=== PATIENT | male | born 1960 | race Caucasian/White ===

== ENCOUNTER 2018-04-24 13:31 | Emergency (ER) | payer MEDICARE, MEDICAID, SELFPAY ==
[2018-04-24 13:41] VITALS: BP 122/85; PULSE 81; RESP 16; TEMP 36.3; O2SAT 98
--- NOTE | 2018-04-24 13:47 | ED.GENADUL_ITS ---
Discharge Plan Disposition Patient Disposition: HOME Condition: Stable Discharge Details Chief Complaint: Abd Prob Clinical Impression: Dysuria Primary Care Provider: True Tinoco ED Provider: Romario Taylor Home Meds and New Rx's Prescriptions: New doxycycline hyclate 100 mg capsule 100 mg PO BID 10 Days Qty: 20 RF: 0 Continue ibuprofen 600 MG tablet 600 mg PO Q6H PRN (Reason: Pain) Qty: 20 RF: 0 acetaminophen [Tylenol] 325 MG tablet 325 mg PO Q6H PRN (Reason: Pain) Qty: 20 RF: 0 Discharge Instructions Instructions: Dysuria (ED) Additional Instructions: Please make an appointment to follow-up with Dr. Tinoco in clinic to review your final culture results. Please take the doxycycline as prescribed. Home to rest today. Small, frequent sips of fluids Medical Decision Making 57-year-old male presents from home complaining of weeks of episodes of burning with both urination and ejaculation. He states it began following unprotected sex some months ago. Denies any penile lesions, no fever, no vomiting and he otherwise has been well. He arrives with unremarkable vital signs and a reassuring exam. GC and Chlamydia obtained with screening macro urinalysis. UA is unremarkable for evidence of infection, GC and Chlamydia pending. Given his complaints and sexual contact I will elect to treat with ceftriaxone and doxycycline. He is stable for discharge. He may follow-up with Dr. Tinoco for final culture results HPI General Mode of arrival: ambulatory . Date/Time Provider Initiated Documentation: 04/24/18 13:32 . Limitations to Documentation: no limitations . Information obtained by: patient . History of Present Illness 57 year old M presents to the emergency department with the chief complaint of Burning with ejaculation and urine over weeks time, Quality is described as burning, and is localized to the pelvis and genitals. Patient reports no radiation. Patient started experiencing this week(s) No relieving factors improve symptom(s), No exacerbating factors reported . Patient notes no other symptoms.. Patient did receive the following treatments prior to arrival, none Related Data Home Medications Medication Instructions Recorded Confirmed acetaminophen [Tylenol] 325 mg PO Q6H PRN #20 tab 03/07/17 03/15/17 ibuprofen 600 mg PO Q6H PRN #20 tablet 03/07/17 03/15/17 doxycycline hyclate 100 mg PO BID 10 Days #20 cap 04/24/18 Previous Rx's Medication Instructions Recorded acetaminophen [Tylenol] 325 mg PO Q6H PRN #20 tab 03/07/17 ibuprofen 600 mg PO Q6H PRN #20 tablet 03/07/17 doxycycline hyclate 100 mg PO BID 10 Days #20 cap 04/24/18 Allergies Allergy/AdvReac Type Severity Reaction Status Date / Time Penicillins Allergy Intermediate Skin Rash Unverified 04/24/18 13:44 citric acids Allergy Intermediate Hives Uncoded 04/24/18 13:44 mayonaise Allergy Intermediate Hives Uncoded 04/24/18 13:44 General Stated Complaint: Abd Prob CLIFFORD: 4 Review of Systems Review of Systems GEN: awake, alert, oriented 3. Pleasant, well groomed, interactive. HEAD: Normocephalic, atraumatic ENT: Mucous membranes moist, oropharynx unremarkable, External ear exam unremarkable EYES: PERRL, EOMI NECK: Full ROM, no REDDY, no menigismus CHEST/RESP: Nontender, clear to auscultation bilateral, no wheeze/rhonchi/rales CARDIOVASCULAR: RRR, no murmur, rub kennedy. 2+ Rad pulse bilateral ABDOMEN: Soft, nontender, no mass. +Bowel sounds. Patient is circumcised and the remainder of the exam is unremarkable with testes descended bilat EXT: Full ROM, no edema, no rash Neuro: Grossly normal neurologic exam, conversant, interactive. Psych: Speech fluent, thoughts congruent, affect normal PFSH Ankle fracture, right Arm fracture, right Bipolar 1 disorder Leg fracture, right ORIF right ankle ORIF right arm ORIF right femur Medical History Ankle fracture, right Arm fracture, right Bipolar 1 disorder Leg fracture, right Social History Smoking/Tobacco Use Status: Current every day Surgical History ORIF right ankle ORIF right arm ORIF right femur Social History Smoking/Tobacco Use Status: Current every day Exam Narrative Exam Narrative: GEN: awake, alert, oriented 3. Pleasant, well groomed, interactive. HEAD: Normocephalic, atraumatic ENT: Mucous membranes moist, oropharynx unremarkable, External ear exam unremarkable EYES: PERRL, EOMI NECK: Full ROM, no REDDY, no menigismus CHEST/RESP: Nontender, clear to auscultation bilateral, no wheeze/rhonchi/rales CARDIOVASCULAR: RRR, no murmur, rub kennedy. 2+ Rad pulse bilateral ABDOMEN: Soft, nontender, no mass. +Bowel sounds EXT: Full ROM, no edema, no rash Neuro: Grossly normal neurologic exam, conversant, interactive. Psych: Speech fluent, thoughts congruent, affect normal Course Vital Signs Temperature 36.3 C L 04/24/18 13:41 Pulse 81 04/24/18 13:41 Respiratory Rate 16 04/24/18 13:41 Blood Pressure 122/85 04/24/18 13:41 Pulse Oximetry 98 04/24/18 13:41 Temperature 36.3 C L 04/24/18 13:41 Temperature Source Temporal Artery Scan 04/24/18 13:41 Pulse 81 04/24/18 13:41 Respiratory Rate 16 04/24/18 13:41 Blood Pressure 122/85 04/24/18 13:41 Pulse Oximetry 98 04/24/18 13:41 Oxygen Delivery Method Room Air 04/24/18 13:41 Oxygen Flow Rate 0 04/24/18 13:41 Pain Level 7 04/24/18 13:41
[2018-04-24 14:08] LABS: Bilirubin Negative (Negative); Blood Negative (Negative); Clarity Clear; Glucose Negative (Negative); Ketones Negative (Negative); Leukocyte Esterase Negative (Negative); Nitrite Negative (Negative); Urobilinogen 0.2 EU/dL (Up TO 0.2); pH 5.5 (5-8)
[2018-04-24] MEDS: cefTRIAXone 250 MG VIAL IM (14:27)
[2018-04-24 14:40] VITALS: BP 113/80; PULSE 89; RESP 16; O2SAT 100
[2018-04-25 14:18] LABS: Chlamydia Result Negative; GC Result Negative
== END 2018-04-24 14:40 | disposition home or self-care (01) ==
PROVIDERS: Emergency Provider Emergency Medicine; PCP General Practice
DX: R30.0 Dysuria (principal); Z77.21 Contact with and (suspected) exposure to potentially hazardous body fluids
CPT/HCPCS: 87491; 87591; 96372; 99284; 81003; J0696

== ENCOUNTER 2018-05-07 13:17 | Emergency (ER) | payer MEDICARE, MEDICAID, SELFPAY ==
[2018-05-07 13:42] VITALS: BP 130/80; PULSE 90; RESP 16; TEMP 36.2; O2SAT 96
[2018-05-07 16:13] LABS: Bilirubin Negative (Negative); Blood Negative (Negative); Clarity Clear; Glucose Negative (Negative); Ketones Negative (Negative); Leukocyte Esterase Negative (Negative); Nitrite Negative (Negative); Specific Gravity 1.015 (1.005-1.025); Urobilinogen 0.2 EU/dL (Up TO 0.2)
--- NOTE | 2018-05-07 16:41 | ED.GENADUL_ITS ---
Discharge Plan Disposition Patient Disposition: HOME Discharge Details Chief Complaint: RashLesion Clinical Impression: Lesion of penis Reason For Visit: STD Primary Care Provider: True Tinoco ED Provider: Endy Oliva Home Meds and New Rx's Prescriptions: Continued ibuprofen 600 MG tablet 600 mg PO Q6H PRN (Reason: Pain) Qty: 20 RF: 0 acetaminophen [Tylenol] 325 MG tablet 325 mg PO Q6H PRN (Reason: Pain) Qty: 20 RF: 0 Discharge Instructions Instructions: Genital Warts (ED) Additional Instructions: Be sure to use barrier protection including a condom anytime you have sexual activity. Please follow-up with a primary care physician. Return to the ER for any worsening or new concerning symptoms Medical Decision Making 58-year-old male here with few tiny skin colored papules on his glans penis, also with some dysuria and painful ejaculation. Recent gonorrhea and Chlamydia testing was neg on 04/24/18. He was treated empirically with ceftriaxone and doxycycline and completed full course of doxycycline. Repeat UA today neg. And irritation versus genital warts. Plan for outpatient follow-up with a primary care physician. He is attempting to schedule pcp follow-up and currently completing [facility]ork. HPI General Mode of arrival: ambulatory . Date/Time Provider Initiated Documentation: 05/07/18 15:34 . Limitations to Documentation: no limitations . Information obtained by: patient . HPI Narrative: 58-year-old male with history of bipolar disorder presents with chief complaint of penile lesion. Patient notes that over the past few months he has noticed small lumps on the glans of his penis. He also notes some associated intermittent dysuria and discomfort with ejaculation. Patient was seen here on 04/24/2018 and inferior treated with ceftriaxone and doxycycline. Subsequent GC and chlamydia results have been negative. No associated fever. No penile discharge. No ulcers. Patient does note that he has had unprotected anal sex about 1 year ago. Related Data Home Medications Medication Instructions Recorded Confirmed acetaminophen [Tylenol] 325 mg PO Q6H PRN #20 tab 03/07/17 03/15/17 ibuprofen 600 mg PO Q6H PRN #20 tablet 03/07/17 03/15/17 Previous Rx's Medication Instructions Recorded acetaminophen [Tylenol] 325 mg PO Q6H PRN #20 tab 03/07/17 ibuprofen 600 mg PO Q6H PRN #20 tablet 03/07/17 Allergies Allergy/AdvReac Type Severity Reaction Status Date / Time Penicillins Allergy Intermediate Skin Rash Unverified 05/07/18 13:48 citric acids Allergy Intermediate Hives Uncoded 05/07/18 13:48 mayonaise Allergy Intermediate Hives Uncoded 05/07/18 13:48 General Stated Complaint: RashLesion CLIFFORD: 4 Review of Systems Constitutional Denies fever(s) Genitourinary Reports as per HPI Integumentary/Breasts Reports as per HPI Hematologic/Lymphatic Denies lymphadenopathy PFSH Medical History Ankle fracture, right Arm fracture, right Bipolar 1 disorder Leg fracture, right Surgical History ORIF right ankle ORIF right arm ORIF right femur Social History Smoking/Tobacco Use Status: Current every day Exam Const General: cooperative, healthy appearing and no acute distress Orientation: alert Penis: no ulcerations, no vesicles and other (tiny skin colored papules on dorsal glans penis) Meatus: meatus normal Scrotum: scrotum normal Testes: normal and epididymides normal Skin Other: penile lesions as noted Course Vital Signs Temperature 36.2 C L 05/07/18 13:42 Pulse 90 05/07/18 13:42 Respiratory Rate 16 05/07/18 13:42 Blood Pressure 130/80 05/07/18 13:42 Pulse Oximetry 96 05/07/18 13:42 Temperature 36.2 C L 05/07/18 13:42 Temperature Source Temporal Artery Scan 05/07/18 13:42 Pulse 90 05/07/18 13:42 Respiratory Rate 16 05/07/18 13:42 Respiratory Effort 05/07/18 13:47 Blood Pressure 130/80 05/07/18 13:42 Pulse Oximetry 96 05/07/18 13:42 Oxygen Delivery Method Room Air 05/07/18 13:42 Oxygen Flow Rate 0 05/07/18 13:42 Lab/Test Results Lab/Test Results: Laboratory Tests Range/Units 05/07/18 15:55 Urine Color (Yellow) Yellow Urine Clarity Clear Urine pH (5-8) 6.0 Ur Specific [place] (1.005-1.025) 1.015 Urine Protein (Negative) mg/dL Negative Urine Ketones (Negative) mg/dL Negative Urine Blood (Negative) Negative Urine Nitrite (Negative) Negative Urine Bilirubin (Negative) Negative Urine Urobilinogen (Up TO 0.2) EU/dL 0.2 Ur Leukocyte Esterase (Negative) Negative Urine Glucose (Negative) mg/dL Negative
[2018-05-09 15:29] LABS: Chlamydia Result Negative; GC Result Negative; Specimen Description URINE
== END 2018-05-07 16:45 | disposition home or self-care (01) ==
PROVIDERS: Emergency Provider Student in an Organized Health Care Education/Training Program; PCP General Practice
DX: N50.9 Disorder of male genital organs, unspecified (principal); N53.12 Painful ejaculation; R30.0 Dysuria
CPT/HCPCS: 87491; 87591; 99282; 81003

== ENCOUNTER 2018-05-12 11:36 | Emergency (ER) | payer MEDICARE, MEDICAID, SELFPAY ==
[2018-05-12 11:45] VITALS: BP 102/79; PULSE 69; RESP 15; TEMP 36.4; O2SAT 97
--- NOTE | 2018-05-12 13:35 | ED.GENADUL_ITS ---
Discharge Plan Disposition Patient Disposition: HOME Condition: Stable Discharge Details Chief Complaint: RashLesion Clinical Impression: Genital warts Primary Care Provider: True Tinoco ED Provider: Efraín Matos Home Meds and New Rx's Prescriptions: Continued ibuprofen 600 MG tablet 600 mg PO Q6H PRN (Reason: Pain) Qty: 20 RF: 0 acetaminophen [Tylenol] 325 MG tablet 325 mg PO Q6H PRN (Reason: Pain) Qty: 20 RF: 0 Discharge Instructions Instructions: Genital Warts (ED) Additional Instructions: Follow-up with your primary care provider for reassessment and potential treatment options if your symptoms continue. Please practice safe sex practices for any sexual encounters you may have to prevent spread of your symptoms. Referrals: True Tinoco MD [Primary Care Provider] - Discharge Data Discharge Date/Time-TO BE ENTERED AT DEPARTURE: 05/12/18 13:54 Medical Decision Making Patient presenting the emergency department for chief complaint of genital warts. Patient states he was seen previously in the emergency department but was not prescribed any medication. Patient states he is very anxious about this condition and is not followed up with a primary care provider about it. Physical exam shows 1 possible area of redness and irritation to the glans of the penis on the right side otherwise I do not see any other diffuse signs of genital warts at this time. Patient has no other symptoms. Patient recently had negative gonorrhea chlamydia testing but did receive prophylactic treatment along with doxycycline at that time. Patient states no worsening symptoms and actually states that he feels that some of the warts may have gone away or gotten better. Given some report of self resolution and non-worrisome physical exam I do feel the patient is able to safely follow up with primary care provider and I do not feel that patient requires any treatment at this time as patient's area of discomfort is not clear with obvious diagnosis. Patient is highly anxious and had thorough discussion with patient in regards to diagnosis and need to follow-up with primary care for repeat reassessments and possible other therapies that are typically not performed in the emergency department. HPI General Mode of arrival: ambulatory . Date/Time Provider Initiated Documentation: 05/12/18 11:46 . Limitations to Documentation: no limitations . Information obtained by: patient, RN notes reviewed and old records reviewed . History of Present Illness 58 year old M presents to the emergency department with the chief complaint of Genital warts, described as similar to prior episodes, Quality is described as other (Denies pain), Patient started experiencing this week(s) (1) and it has been other (Improving). No relieving factors improve symptom(s), No exacerbating factors reported . Patient notes no other symptoms.. Patient did receive the following treatments prior to arrival, none Related Data Home Medications Medication Instructions Recorded Confirmed acetaminophen [Tylenol] 325 mg PO Q6H PRN #20 tab 03/07/17 05/12/18 ibuprofen 600 mg PO Q6H PRN #20 tablet 03/07/17 05/12/18 Previous Rx's Medication Instructions Recorded acetaminophen [Tylenol] 325 mg PO Q6H PRN #20 tab 03/07/17 ibuprofen 600 mg PO Q6H PRN #20 tablet 03/07/17 Allergies Allergy/AdvReac Type Severity Reaction Status Date / Time Penicillins Allergy Intermediate Skin Rash Unverified 05/12/18 11:50 citric acids Allergy Intermediate Hives Uncoded 05/12/18 11:50 mayonaise Allergy Intermediate Hives Uncoded 05/12/18 11:50 General Stated Complaint: RashLesion CLIFFORD: 4 Review of Systems Constitutional Denies body ache(s), Denies chills and Denies fever(s) Cardiovascular Denies chest pain and Denies dyspnea Respiratory Denies dyspnea Gastrointestinal Denies abdominal pain, Denies nausea and Denies vomiting Genitourinary Reports as per HPI, Reports genital lesions, Denies painful ejaculations, Denies penile discharge, Denies scrotal swelling, Denies testicular mass, Denies testicular pain, Denies urinary frequency and Denies urinary hesitancy Neurologic Denies confusion and Denies sensory deficit Psychiatric Denies confusion [facility] Medical History Ankle fracture, right Arm fracture, right Bipolar 1 disorder Leg fracture, right Surgical History ORIF right ankle ORIF right arm ORIF right femur Social History Smoking/Tobacco Use Status: Current every day Exam Const General: cooperative, no acute distress and not ill appearing Orientation: alert, awake and oriented x3 HENMT Mouth: moist mucous membranes Resp Effort & Inspection: normal respiratory effort, able to speak in complete sentences and no respiratory distress Cardio Rate: regular rate Rhythm: regular rhythm Penis: no condylomata, no ecchymosis, not edematous, no nodules, no papules, no swelling, no ulcerations, no vesicles and other (Single small area of erythema noted to the right superior aspect ) Meatus: meatus normal and no meatla discharge Scrotum: scrotum normal, no hydroceles, no masses, no spermatoceles, no ulcerations and no varicoceles Testes: normal, testicular lie normal and epididymides normal Skin General skin exam: no rashes or lesions noted Neuro General: alert, awake, oriented x3, moves all extremities and no focal motor deficits Sensory Exam: no sensory deficits noted Course Vital Signs Temperature 36.4 C L 05/12/18 11:45 Pulse 69 05/12/18 11:45 Respiratory Rate 15 05/12/18 11:45 Blood Pressure 102/79 05/12/18 11:45 Pulse Oximetry 97 05/12/18 11:45 Temperature 36.4 C L 05/12/18 11:45 Temperature Source Temporal Artery Scan 05/12/18 11:45 Pulse 69 05/12/18 11:45 Respiratory Rate 15 05/12/18 11:45 Respiratory Effort Non-Labored 05/12/18 11:49 Blood Pressure 102/79 05/12/18 11:45 Blood Pressure Position Sitting 05/12/18 11:45 Pulse Oximetry 97 05/12/18 11:45 Oxygen Delivery Method Room Air 05/12/18 11:45 Oxygen Flow Rate 0 05/12/18 11:45 Pain Level 0 05/12/18 11:45
[2018-05-12 13:48] VITALS: BP 102/79; PULSE 69; RESP 15; TEMP 36.5; O2SAT 97
== END 2018-05-12 13:54 | disposition home or self-care (01) ==
PROVIDERS: Emergency Provider Nurse Practitioner Family; PCP General Practice
DX: A63.0 Anogenital (venereal) warts (principal)
CPT/HCPCS: 99283; 99281; 99282

== ENCOUNTER 2018-07-06 12:50 | Outpatient (CLI) | payer MEDICARE, MEDICAID, SELFPAY ==
[2018-07-09 12:21] LABS: HSV Type 1 Ab, IgG Negative; HSV Type 2 Ab, IgG Negative; Syphilis Serology (RPR) Negative (Negative)
[2018-07-09 13:41] LABS: Chlamydia Result Negative; GC Result Negative; Specimen Description URINE
[2018-07-09 13:50] LABS: HIV-1/2 Ag & Ab Screen Negative (NEGAT)
[2018-07-09 13:51] LABS: HBs Antibody, Qual Negative; HBs Antibody, Quant <3.1 mIU/mL; Hepatitis B Core Antibody Negative (NEGAT); Hepatitis B surface Ag Negative (NEGAT); Hepatitis C Ab w Rflx HCV PCR Negative (NEGAT)
== END 2018-07-06 13:10 ==
PROVIDERS: PCP Family Medicine; Visit Provider Family Medicine
DX: Z11.3 Encounter for screening for infections with a predominantly sexual mode of transmission (principal); Z11.4 Encounter for screening for human immunodeficiency virus [HIV]; Z11.59 Encounter for screening for other viral diseases
CPT/HCPCS: 36415; 86704; 86706; 86803; 87340; 87389; 87491; 87591; 86592; 86695; 86696

== ENCOUNTER 2018-07-06 13:16 | Emergency (ER) | payer MEDICARE, MEDICAID, SELFPAY ==
[2018-07-06 13:18] VITALS: BP 115/87; PULSE 99; RESP 16; TEMP 36.7; O2SAT 97
--- NOTE | 2018-07-06 13:54 | NUR.NOTE ---
patient reported to JOY Cardona about hanging himself and if I had access to a gun I would shoot the people in my apartment that are making crack Nursing Note:
--- NOTE | 2018-07-06 14:06 | NUR.NOTE ---
JOY Cardona is operating as an costant patient observer Nursing Note:
--- NOTE | 2018-07-06 14:19 | DI.RAD_ITS ---
SYMPTOMS/DIAGNOSIS: COUGH FOR WEEKS PORTABLE AP CHEST: The heart is not enlarged. The lungs appear grossly clear. No pleural effusions seen. CONCLUSION: No evidence of acute disease.
[2018-07-06 14:34] LABS: Abs Immature Grans 0.01 k/cumm (0.0-0.09); Absolute Basophil Count 0.03 k/cumm (0.0-0.2); Absolute Eosinophil Count 0.05 k/cumm (0.0-0.7); Absolute Lymphocyte Count 1.54 k/cumm (1.2-3.4); Absolute Monocyte Count 0.56 k/cumm (0.11-0.7); Absolute Neutrophil Count 5.31 k/cumm (1.2-6.7); Basophils % 0.4; Eosinophils % 0.7; HCT 45.7 % (40.0-50.0); HGB 15.7 g/dL (13.5-17.5); Immature Grans % 0.1; Lymphocytes % 20.5; Mean Corp. HGB Concentration 34.4 g/dL (32.0-36.0); Mean Corpuscular Hemoglobin 29.6 pg (27.0-33.0); Mean Corpuscular Volume 86.2 fL (80-95); Mean Platelet Volume 10.2 fL (8.0-11.0); Monocytes % 7.5; Neutrophils % 70.8; Platelet Count 220 x1000/uL (130-400); RBC Distribution Width 12.5 % (11.8-14.1)
--- NOTE | 2018-07-06 14:34 | W.ED.GENAD ---
Discharge Plan Disposition Patient Disposition: [facility] Condition: Stable Discharge Details Chief Complaint: RespSymp Clinical Impression: Suicidal ideation, Depression Primary Care Provider: Roman Bryan ED Provider: Romario Taylor Home Meds and New Rx's Prescriptions: No Action No Known Home Meds RF: 0 Discharge Data Discharge Date/Time-TO BE ENTERED AT DEPARTURE: 07/07/18 09:39 Medical Decision Making <Bharathi Hernandez DO - Last Filed: 07/06/18 18:59> This is a pleasant 58-year-old male with a past medical history of bipolar disorder, anxiety, who presents today for evaluation of mild chest pain that occurred 3-4 days ago, however this is completely resolved. He has no history of cardiac disease. However the patient does demonstrate notable anxiety, mostly all stemming from where he currently lives. He admits to having had thoughts of ending his life, however this seems to be more closely related to him if he continues to live where he is currently at. We will perform a cardiac workup, as well as evaluate for any acute lung pathology and have mental health come and assessed the patient. 6:57 PM Patient's laboratory workup is benign, no significant abnormalities. EKG is benign. Patient did have a mild complaint of chest pain which I think is notably atypical for ACS especially in light of her normal EKG and normal troponin, his pain does get better when he sits up, and worse when he lays down, I feel the signs and symptoms most likely consistent with mild pericarditis or musculoskeletal strain and not cardiac. He is medically cleared at this time. Unfortunately the patient is now stating that if he goes home he will slit my wrists with scissors because I cannot live like this anymore. Additionally the patient also states that if he goes home he will stabbed the people at his apartment with scissors since I cant get a gun. As it is I do feel that the patient would notably benefit from inpatient psychiatric admission. Mental health is currently assessing for potential placement. The case will be signed out to my colleague Dr. De Leon for eventual disposition if a bed does become available. EKG 14: 24 Rate 65, intervals normal, sinus rhythm, no ST elevations or depressions, no significant T wave inversions or Q waves. PORTABLE AP CHEST: The heart is not enlarged. The lungs appear grossly clear. No pleural effusions seen. CONCLUSION: No evidence of acute disease. Ordered By: Bharathi Hernandez DO <Endy Oliva MD - Last Filed: 07/19/18 16:27> Patient was signed out to me last night. He did complain of a rash on his right forearm which I evaluated. Three tiny papules noted with no erythema. Unclear etiology. Patient believes may be related to stress. No intervention indicated at this time. Patient remains medically stable to transfer to psychiatric treatment facility. [facility] called earlier noting that they may be able to accept later today. Care signed out to , plan to await placement in psych treatment facility. <Romario Taylor MD - Last Filed: 07/07/18 08:45> Patient accepted in transfer to the [facility] to the service of Dr. Sahu HPI <Bharathi Hernandez DO - Last Filed: 07/06/18 18:59> General Date/Time Provider Initiated Documentation: 07/06/18 13:16. HPI Narrative: This is a 58-year-old male with no significant past medical history except for bipolar disorder, depression, and anxiety, who presents today for symptoms of anxiety and depression. Patient states that his neighbors smoke crack and utilize drugs, and these chemicals have been seeping through the wall and the floor, he feels that they may be affecting him. He does admit to a mild cough, with occasional productive yellow sputum. He did admit to chest pain that occurred 3-4 days ago, and it was present when he lie down flat but improved when he sat upwards. He denies any significant chest pain or pleuritic chest pain now. He denies any history of cardiac disease. He denies any drug use, or cocaine use. Denies PE risk factors such as recent long car rides, immobilization, recent surgery, prior history of DVT or PE, family history of PE or DVT, morbid obesity, exogenous estrogen and smoking, hemoptysis, history of cancer. Additionally the patient states that I have to get out of this house, cannot live here anymore.He also states that I thought about harming myself in the past, but I do not want to kill myself now, but I cannot live like this anymore in this house. He denies any auditory or visual hallucinations. He has not been taking his medications for his bipolar disorder for the last 2 weeks. He has no other complaints at this time. Related Data Home Medications Medication Instructions Recorded Confirmed Unknown [No Known Home Meds] 07/06/18 07/06/18 Allergies Allergy/AdvReac Type Severity Reaction Status Date / Time Penicillins Allergy Intermediate Skin Rash Unverified 07/06/18 13:21 citric acids Allergy Intermediate Hives Uncoded 07/06/18 13:21 mayonaise Allergy Intermediate Hives Uncoded 07/06/18 13:21 General Stated Complaint: RespSymp CLIFFORD: 2 Review of Systems <Bharathi Hernandez DO - Last Filed: 07/06/18 18:59> Review of Systems All systems reviewed & are unremarkable except as noted in HPI and below PFSH <Bharathi Hernandez DO - Last Filed: 07/06/18 18:59> Medical History Bipolar 1 disorder Broken jaw (Acute) Ankle fracture, right Arm fracture, right Leg fracture, right Surgical History ORIF right ankle ORIF right arm ORIF right femur Social History adopted: No foster care: No housing: apartment lives independently: Yes number of children: 0 highest education level completed: 8th grade current occupational status: disabled what type of physical activity do you participate in: none Smoking and Tabacco status: Current every day alcohol intake: former substance use type: does not use Exam <Bharathi Hernandez DO - Last Filed: 07/06/18 18:59> Narrative Exam Narrative: 1.Const: Well-nourished, Well-developed, appearing stated age 2.Eyes: PERRL, no conjunctival injection, and symmetrical lids. 3.ENT: Atraumatic external nose and ears. Moist MM. Neck: Symmetric, trachea midline, No thyromegaly. 4.CVS: +S1/S2, No murmurs or gallops. Peripheral pulses 2+ and equal in all extremities. Brisk capillary refill in all extremities. 5.RESP: Unlabored respiratory effort. Clear to auscultation bilaterally. No wheezes rales or rhonchi 6.GI: Soft, Nontender/Nondistended, No hepatosplenomegaly. No guarding or rebound. 7.MSK: Normocephalic/Atraumatic, Extremities w/o deformity or ttp No cyanosis or clubbing, Normal movement of all extremities 8.Skin: Warm, Dry. No rashes or lesions. 9.Neuro: contract project manager II-XII grossly intact. Sensation grossly intact, no focal neurologic deficits. 10.Psych: (AAO) x3. Slightly tearful, no flight of ideas or pressured speech. Course <Bharathi Hernandez DO - Last Filed: 07/06/18 18:59> Vital Signs Temperature 36.7 C 07/06/18 13:18 Pulse 99 H 07/06/18 13:18 Respiratory Rate 16 07/06/18 13:18 Blood Pressure 115/87 07/06/18 13:18 Pulse Oximetry 97 07/06/18 13:18 Temperature 36.7 C 07/06/18 13:18 Pulse 99 H 07/06/18 13:18 Respiratory Rate 16 07/06/18 13:18 Respiratory Effort 07/06/18 13:31 Respiratory Depth Normal 07/06/18 13:30 Blood Pressure 115/87 07/06/18 13:18 Blood Pressure Position Sitting 07/06/18 13:18 Pulse Oximetry 97 07/06/18 13:18 Oxygen Delivery Method Room Air 07/06/18 13:18 Oxygen Flow Rate 0 07/06/18 13:18 Pain Level 5 07/06/18 13:56 Comment 07/06/18 13:56 Sign Out <Bharathi Hernandez DO - Last Filed: 07/06/18 18:59> Sign Out Data: Sign Out Comment: Patient is medically cleared. Pending bed placement for suicidal and homicidal ideations. Last updated by Bharathi Hernandez DO at 07/06/18 19:49 Sign Out Comment: Patient medically stable for transfer to psychiatric treatment facility. Care signed out to . Last updated by Endy Oliva MD at 07/07/18 07:56
[2018-07-06 14:35] LABS: Bilirubin Negative (Negative); Blood Negative (Negative); Clarity Clear; Glucose Negative (Negative); Ketones Negative (Negative); Leukocyte Esterase Negative (Negative); Nitrite Negative (Negative); Specific Gravity 1.015 (1.005-1.025); Urobilinogen 0.2 EU/dL (Up TO 0.2)
[2018-07-06 14:46] LABS: *AMPHETAMINES SCREEN URINE Negative (Negative); *BARBITURATES SCREEN URINE Negative (Negative); *BENZODIAZEPINES SCREEN URINE Negative (Negative); Cannabinoids THC Negative (Negative); Cocaine Screen,Urine Negative (Negative); METHADONE URINE SCREEN Negative (Negative); OPIATES URINE SCREEN Negative (Negative)
[2018-07-06 14:47] LABS: ALT 16 U/L (12-78); AST 12 U/L (15-37); Albumin 3.8 g/dL (3.4-5.0); Alkaline Phosphatase 88 U/L (46-116); Anion Gap 4.4 mmol/L (3-11); BUN 13 mg/dL (7-18); Bilirubin, Total 0.3 mg/dL (0.2-1.0); CO2 31.6 mmol/L (21.0-32.0); CREATININE 0.95 mg/dL (0.70-1.30); Calcium 9.1 mg/dL (8.5-10.1); Chloride 102 mmol/L (98-107); Glucose 75 mg/dL (70-100); Sodium 138 mmol/L (136-145); Total Protein 7.8 g/dL (6.4-8.2)
[2018-07-06 14:50] LABS: Tricyclic Antidepressants Negative (Negative); Troponin I < 0.02 ng/mL (0.00-0.06)
[2018-07-06 15:15] LABS: Acetaminophen < 2 ug/mL (10-30); Salicylate < 2.8 mg/dL (2.8-20.0)
[2018-07-06 15:16] LABS: ETHANOL BLOOD < 3.0 mg/dL (<3)
--- NOTE | 2018-07-06 17:40 | PDOC.MHCN ---
Date of service: 07/06/18 Time of Service: 17:40 Mental Health Crisis Note Presenting Issue How did you arrive at the ED and why did you come: Pranav initially came to the ER to get blood work done. However, he started to disclose beliefs that resembled delusional thinking and paranoia that the doctor wanted mental health to evaluate. Precipitating Factors Pranav initially has been trying to move out of his apartment due to beliefs that people are making crack/cocaine in his apartment building. He believes the house is being poisoned and should be condemned. He is refusing to go back to his home. This play writer discussed past community interventions that have occurred from this issue. Pranav was not willing to return to his apartment even with a follow up appointment or phone checks through the weekend. Crisis bed options were looked at but were not available. After spending time calling crisis beds and trying to safety plan, he started to talk about suicide. He seems unable or unwilling to access the process of utilizing resources needed to find alternative housing at this time. He does not have safe alternatives and seems to want services to provide that for him. Disposition BEHAVIOR: psychosomatic to paranoid EYE CONTACT: poor MOOD: anxious AFFECT: constricted to irritable APPETITE: good SLEEP(trouble falling/staying asleep: none reported Plan Safety plan options will continue to occur at [facility] while limitations to placement will continue to be discussed by [facility] after hours worker. He will remain at [facility] until a plan can be developed. Signature Clinician's Name/Title: Ken Coello MA [facility] [place][NOTE 2]
--- NOTE | 2018-07-06 17:52 | PDOC.MHCN_ITS ---
Date of service: 07/06/18 Time of Service: 17:40 Mental Health Crisis Note Presenting Issue How did you arrive at the ED and why did you come: Pranav initially came to the ER to get blood work done. However, he started to disclose beliefs that resembled delusional thinking and paranoia that the doctor wanted mental health to evaluate. Precipitating Factors Pranav initially has been trying to move out of his apartment due to beliefs that people are making crack/cocaine in his apartment building. He believes the house is being poisoned and should be condemned. He is refusing to go back to his home. This continuity writer discussed past community interventions that have occurred from this issue. Pranav was not willing to return to his apartment even with a follow up appointment or phone checks through the weekend. Crisis bed options were looked at but were not available. After spending time calling crisis beds and trying to safety plan, he started to talk about suicide. He seems unable or unwilling to access the process of utilizing resources needed to find alternative housing at this time. He does not have safe alternatives and seems to want services to provide that for him. Disposition BEHAVIOR: psychosomatic to paranoid EYE CONTACT: poor MOOD: anxious AFFECT: constricted to irritable APPETITE: good SLEEP(trouble falling/staying asleep: none reported Plan Safety plan options will continue to occur at [facility] while limitations to plac emjaz will continue to be discussed by [facility] after hours worker. He will remain at [facility] until a plan can be developed. Signature Clinician's Name/Title: Ken Coello MA [facility]
--- NOTE | 2018-07-06 19:36 | PDOC.ERCMPRO ---
- If Service Date Differs Date of service: 07/06/18 Time of Service: 19:36 Care Management Progress Note Pranav is a 58 year old male with a history of Bipolar disorder, depression and anxiety and multiple ED visits for psychiatric evaluation. Pranav arrived today with complaints of upper respiratory symptoms. However during his visit he expressed suicidal ideation. Provider is concerned patient is having delusional thinking and requested mental health evaluation. Please see mental health and provider notes. Pranav is a voluntary admission awaiting placement for psychiatric stabilization. While awaiting placement at facility coordinated by [facility] health services he will remain in the ED for suicidal ideation, with CPSO one-on-one observation at all times. VOLUNTARY FOR INPATIENT PSYCHIATRIC STABILIZATION. Pranav is currently cooperative and appropriate in his interactions; he has articulated his needs and concerns and is engaged during staff interactions. Huddle Participants: JOY Bain primary; JOY Fleming CM; Paola [facility]; Cynthia HAMILTON pipelines supervisor. 07/06/18 @ 2100 Safety plan has been established with patient, and care team, to adhere to patient goals, identify restrictions based on behavioral status, address nutrition, and determine allowed personal belongings, tools for hygiene and personal care. Determine level of activity including ambulation, level of supervision, visitors, and determine privileges based on behaviors and level of engagement by Pt. SERA has reviewed the plan with the patient. SAFETY PLAN: 1. Will remain on suicide precautions. In Paper Clothes 2. Will remain in room under direct supervision of one-on-one staff at all times provided by CATA, PERSONAL INJURY PARALEGAL marketing sales supervisor. 3. May have paper cups, plates, finger foods as well as a metal spoon with which to eat meals. [facility] staff will be responsible for accounting of utensils after meals. 4. Follow [facility] Management of the Admitted Behavioral Health Patient policy. 5. Comfort bath system only. 6. No personal belongings in the room. 7. Visitors: None 8. Activities include coloring, crayons, ED activity cart offerings, tablet without wired headphones, and TV if one becomes available. 9. Bathroom privileges may go to the bathroom with staff escort. 10. 10. Due to VOLUNTARY status, if patient wishes to leave [facility], the [facility] floorworker distributor must be contacted to re-evaluate patient prior to patient exiting the building. Placement: Referrals to [facility] per [facility]. [facility] will [facility] to place referrals to psychiatric facilities and provide update to the primary care team r/t bed status. Patient is currently voluntarily at [facility] and seeking inpatient admission when a bed becomes available. [facility] Frontline Etl Bi Developer will continue seeking placement. Please contact the Job Site Superintendent Cardiac Nurse ([phone]) and [facility] Etl Bi Developer ([phone]) for any needed changes in the Safety Plan. Safety plan has been provided to interdepartmental care team including Clinical Coordinator, Nursing Asbestos Handler.
[2018-07-06] MEDS: Acetaminophen 500 MG TAB 1000 MG PO (19:46)
[2018-07-06] MEDS: Ibuprofen 800 MG TAB PO (19:46)
--- NOTE | 2018-07-06 19:46 | CMPROGNOTE_ITS ---
- If Service Date Differs Date of service: 07/06/18 Time of Service: 19:36 Care Management Progress Note Pranav is a 58 year old male with a history of Bipolar disorder, depression and anxiety and multiple ED visits for psychiatric evaluation. Pranav arrived today with complaints of upper respiratory symptoms. However during his visit he expressed suicidal ideation. Provider is concerned patient is having delusional thinking and requested mental health evaluation. Please see mental health and provider notes. Pranav is a voluntary admission awaiting placement for psychiatric stabilization. While awaiting placement at facility coordinated by [facility] health services he will remain in the ED for suicidal ideation, with CPSO one-on-one observation at all times. VOLUNTARY FOR INPATIENT PSYCHIATRIC STABILIZATION. Pranav is currently coop erative and appropriate in his interactions; he has articulated his needs and concerns and is engaged during staff interactions. Huddle Participants: JOY Bain primary; JOY Fleming CM; Paola [facility]; Cynthia HAMILTON synthetic department supervisor. 07/06/18 @ 2100 Safety plan has been established with patient, and care team, to adhere to patient goals, identify restrictions based on behavioral status, address nutrition, and determine allowed personal belongings, tools for hygiene and personal care. Determine level of activity including ambulation, level of supervision, visitors, and determine privileges based on behaviors and level of engagement by Pt. SERA has reviewed the plan with the patient. SAFETY PLAN: 1. Will remain on suicide precautions. In Paper Clothes 2. Will remain in room under direct supervision of one-on-one staff at all times provided by CATA, MATERIAL EXPEDITER adolescent counselor. 3. May have paper cups, plates, finger foods as well as a metal spoon with which to eat meals. [facility] staff will be responsible for accounting of utensils after meals. 4. Follow [facility] Management of the Admitted Behavioral Health Patient policy. 5. Comfort bath system only. 6. No personal belongings in the room. 7. Visitors: None 8. Activities include coloring, crayons, ED activity cart offerings, tablet without wired headphones, and TV if one becomes available. 9. Bathroom privileges may go to the bathroom with staff escort. 10. 10. Due to VOLUNTARY status, if patient wishes to leave [facility], the [facility] harvest worker fruit must be contacted to re-evaluate patient prior to patient exiting the building. Placement: [facility]errals to [facility] and [place] per [facility]. [facility] will continue to place referrals to psychiatric facilities and provide update to the primary care team r/t bed status. Patient is currently voluntarily at [facility] and seeking inpatient admission when a bed becomes available. [facility] Frontline Assembly Line Driver will continue seeking placement. Please contact the Gel Coat Sprayer Press Room Supervisor ([phone]) and [facility] Assembly Line Driver ([phone]) for any needed changes in the Safety Plan. Safety plan has been provided to interdepartmental care team including Clinical Coordinator, Nursing Street Inspector.
--- NOTE | 2018-07-06 21:29 | PDOC.MHCN ---
Mental Health Crisis Note Presenting Issue How did you arrive at the ED and why did you come: Pranav comes to the hospital to get blood work done. While in the ER, he begins talking about his beliefs that his apartment is contaminated with toxic fumes due to his neighbors manufacturing crack cocaine in the building. [facility] staff contact [facility] emergency services to request an assessment of Pranav due to his delusional thinking. Precipitating Factors Pranav admits to suicidal and homicidal ideation. He claims to have attempted suicide on a couple of occasions over the past 2 weeks. He states he will kill himself if he returns to his apartment. He additionally talks about thoughts of killing the neighbors who are contaminating the building. Disposition BEHAVIOR: Cooperative. EYE CONTACT: Fair. MOOD: Depressed. AFFECT: Flat. APPETITE: Good. SLEEP(trouble falling/staying asleep: Reports only sleeping 3 to 4 hours per night due to fears the neighbors will burn down the building. Plan Plan is to seek a voluntary hospitalization for mood stabilization. [facility] other [facility] are [facility]. A huddle is done with hospital staff and a care plan is created.
--- NOTE | 2018-07-06 21:41 | PDOC.MHCN_ITS ---
Mental Health Crisis Note Presenting Issue How did you arrive at the ED and why did you come: Pranav comes to the hospital to get blood work done. While in the ER, he begins talking about his beliefs that his apartment is contaminated with toxic fumes due to his neighbors manufacturing crack cocaine in the building. [facility] staff contact [facility] emergency services to request an assessment of Pranav due to his delusional thinking. Precipitating Factors Pranav admits to suicidal and homicidal ideation. He claims to have attempted suicide on a couple of occasions over the past 2 weeks. He states he will kill himself if he returns to his apartment. He additionally talks about thoughts of killing the neighbors who are contaminating the building. Disposition BEHAVIOR: Cooperative. EYE CONTACT: Fair. MOOD: Depressed. AFFECT: Flat. APPETITE: Good. SLEEP(trouble falling/staying asleep: Reports only sleeping 3 to 4 hours per night due to fears the neighbors will burn down the building. Plan Plan is to seek a voluntary hospitalization for mood stabilization. [facility] All other [facility] are full. A huddle is done with hospital staff and a care plan is created.
--- NOTE | 2018-07-07 00:19 | NUR.NOTE ---
Addendum entered by Rachelle Clement 07/07/18 02:12: [facility] has called. Spoke with Ana Laura from intake who states we can call in AM after 0900 to review the case again. Ana Laura states unable to take pt tonight r/t staffing, but would consider after review in AM. Pt has remained calm and cooperative here in ED. Currently resting on left side facing wall, remains 1:1 direct observation throughout time here in ED. Break given to CPSO. Original Note: Nursing Note: Report received from Payal Rousseau RN. Pt states vomited x 2 from the onions in my sandwich. Pt encouraged to try crackers and gingerale sips. Will continue to monitor. MD aware. Pt states does not have nausea at this time.
--- NOTE | 2018-07-07 04:50 | NUR.NOTE ---
Nursing Note: Pt resting well, CPSO in direct observation. [facility] has called - pt has been accepted pending any changes by the AM for doc to doc (after 8 am). Pt is on the schedule for 07/07/18 admit. [facility] clinician will call after 8 am for f/u information and report.
[2018-07-07 08:06] VITALS: BP 105/67; PULSE 51; RESP 16; TEMP 37; O2SAT 96
--- NOTE | 2018-07-07 08:39 | NUR.NOTE ---
Nursing Note: Antonio from [facility] called stating that the doc to doc was done and we could send the patient. He stated that we did not need to wair for the nurse to nurse. Go ahead and send. is aware. Sushma Reyes. [facility] [phone].
[2018-07-07 09:36] VITALS: BP 105/67; PULSE 51; RESP 16; TEMP 37; O2SAT 96
== END 2018-07-07 09:39 | disposition short-term general hospital (02) ==
PROVIDERS: Student in an Organized Health Care Education/Training Program; Emergency Provider Emergency Medicine; PCP Family Medicine
DX: F31.9 Bipolar disorder, unspecified (principal); R07.9 Chest pain, unspecified; R45.851 Suicidal ideations; R21 Rash and other nonspecific skin eruption; F32.89 Other specified depressive episodes
CPT/HCPCS: 36415; 80053; 80307; 86704; 86706; 86803; 87340; 87389; 87491; 87591; 93005; 99285; 71045; 80320; 80329; 81003; 84484; 85025; 86592; 86695; 86696; 93010; 99284

== ENCOUNTER 2018-09-27 09:18 | Outpatient (CLI) | payer MEDICARE, MEDICAID, SELFPAY ==
[2018-09-27 09:53] LABS: Absolute Basophil Count 0.02 k/cumm (0.0-0.2); Absolute Eosinophil Count 0.13 k/cumm (0.0-0.7); Absolute Lymphocyte Count 1.53 k/cumm (1.2-3.4); Absolute Neutrophil Count 2.57 k/cumm (1.2-6.7); Basophils % 0.4; Eosinophils % 2.7; HCT 43.5 % (40.0-50.0); HGB 14.6 g/dL (13.5-17.5); Lymphocytes % 32.2; Mean Corp. HGB Concentration 33.6 g/dL (32.0-36.0); Mean Corpuscular Hemoglobin 29.5 pg (27.0-33.0); Mean Corpuscular Volume 87.9 fL (80-95); Mean Platelet Volume 10.9 fL (8.0-11.0); Monocytes % 10.5; Neutrophils % 54.2; Platelet Count 192 x1000/uL (130-400); RBC 4.95 m/cumm (4.50-6.00); RBC Distribution Width 13.4 % (11.8-14.1); White Blood Cell Count 4.75 k/cumm (4.4-10.8)
[2018-09-27 10:10] LABS: ALT 18 U/L (12-78); AST 13 U/L (15-37); Albumin 3.6 g/dL (3.4-5.0); Alkaline Phosphatase 61 U/L (46-116); Anion Gap 8.9 mmol/L (3-11); BUN 14 mg/dL (7-18); Bilirubin, Total 0.4 mg/dL (0.2-1.0); CO2 25.1 mmol/L (21.0-32.0); CREATININE 0.87 mg/dL (0.70-1.30); Calcium 9.1 mg/dL (8.5-10.1); Chloride 105 mmol/L (98-107); Glucose 140 mg/dL (70-100); Potassium 4.1 mmol/L (3.5-5.1); Sodium 139 mmol/L (136-145); Total Protein 6.9 g/dL (6.4-8.2)
[2018-09-27 10:14] LABS: VALPROIC ACID 19.4 ug/mL (50-100)
== END 2018-09-27 09:38 ==
PROVIDERS: PCP Family Medicine; Visit Provider Nurse Practitioner Family
DX: F31.32 Bipolar disorder, current episode depressed, moderate (principal); Z51.81 Encounter for therapeutic drug level monitoring; Z79.899 Other long term (current) drug therapy
CPT/HCPCS: 36415; 80053; 80164; 85025

== ENCOUNTER 2018-10-22 09:22 | Outpatient (CLI) | payer MEDICARE, MEDICAID, SELFPAY ==
[2018-10-22 09:56] LABS: VALPROIC ACID 51.7 ug/mL (50-100)
[2018-10-22 10:10] LABS: Abs Immature Grans 0.01 k/cumm (0.0-0.09); Absolute Basophil Count 0.02 k/cumm (0.0-0.2); Absolute Eosinophil Count 0.19 k/cumm (0.0-0.7); Absolute Lymphocyte Count 2.07 k/cumm (1.2-3.4); Absolute Monocyte Count 0.65 k/cumm (0.11-0.7); Absolute Neutrophil Count 2.61 k/cumm (1.2-6.7); Basophils % 0.4; Eosinophils % 3.4; HCT 43.5 % (40.0-50.0); HGB 14.6 g/dL (13.5-17.5); Immature Grans % 0.2; Lymphocytes % 37.3; Mean Corp. HGB Concentration 33.6 g/dL (32.0-36.0); Mean Corpuscular Hemoglobin 29.9 pg (27.0-33.0); Mean Platelet Volume 11.1 fL (8.0-11.0); Monocytes % 11.7; Platelet Count 197 x1000/uL (130-400); RBC 4.89 m/cumm (4.50-6.00); RBC Distribution Width 13.3 % (11.8-14.1); White Blood Cell Count 5.55 k/cumm (4.4-10.8)
[2018-10-22 10:35] LABS: ALT 20 U/L (12-78); AST 13 U/L (15-37); Albumin 3.6 g/dL (3.4-5.0); Alkaline Phosphatase 60 U/L (46-116); Anion Gap 7.2 mmol/L (3-11); BUN 13 mg/dL (7-18); Bilirubin, Total 0.4 mg/dL (0.2-1.0); CO2 27.8 mmol/L (21.0-32.0); CREATININE 0.92 mg/dL (0.70-1.30); Calcium 8.9 mg/dL (8.5-10.1); Chloride 104 mmol/L (98-107); Glucose 91 mg/dL (70-100); Potassium 4.3 mmol/L (3.5-5.1); Sodium 139 mmol/L (136-145); Total Protein 6.6 g/dL (6.4-8.2)
== END 2018-10-22 09:42 ==
PROVIDERS: PCP Family Medicine; Visit Provider Nurse Practitioner Family
DX: Z51.81 Encounter for therapeutic drug level monitoring (principal); Z79.899 Other long term (current) drug therapy; F31.32 Bipolar disorder, current episode depressed, moderate
CPT/HCPCS: 36415; 80053; 80164; 85025

== ENCOUNTER 2018-11-26 12:04 | Emergency (ER) | payer MEDICARE, MEDICAID, SELFPAY ==
[2018-11-26] VITALS (37 sets, daily range): BP systolic 105–124; BP diastolic 64–76; PULSE 36–65; RESP 11–20; TEMP 36.6–37; O2SAT 87–100
--- NOTE | 2018-11-26 12:10 | ED.GENADUL_ITS ---
Discharge Plan Disposition Patient Disposition: HOME Condition: Stable Discharge Details Chief Complaint: GenMedical Clinical Impression: Bradycardia, Depression, Chronic headaches, Chronic chest pain Primary Care Provider: Roman Bryan ED Provider: Tamara Oliva Home Meds and New Rx's Prescriptions: No Action naproxen 500 mg tablet 500 mg PO BID Qty: 90 RF: 3 divalproex [Depakote] 500 mg tablet,delayed release (DR/EC) 500 mg PO BID RF: 0 aripiprazole [Abilify] 5 mg tablet 5 mg PO QHS RF: 0 Discharge Instructions Instructions: Chest Pain (ED), Depression (ED), Bradycardia (ED), General Headache (ED) Additional Instructions: Please return immediately to the emergency department if you develop any new or worsening symptoms or if you become otherwise concerned. It is extremely important that you discuss stopping your valproic acid and starting another medication for your bipolar at your appointment with [facility] tomorrow morning as scheduled. It is also extremely important that you call as soon as possible to schedule a follow-up appointment with both c ardiology and your primary care doctor. Stand Alone Forms: Work Release Referrals: Antonio Landrum MD [ [facility] STAFF PHYSICIAN] - Roman Bryan DO [Primary Care Provider] - Discharge Data Discharge Date/Time-TO BE ENTERED AT DEPARTURE: 11/26/18 18:25 Medical Decision Making Pranav Ochoa is a 58 y/o man with a history of bipolar disorder, alcohol use disorder who presented to the emergency department with multiple complaints including intermittent headache, chest pain over the past few months though not currently occurring. On exam patient is well and nontoxic appearing. Benign cardiopulmonary exam, grossly nonfocal neurologic exam. Unclear etiology of patient's symptoms, doubt ACS/PE, significant metabolic/lyte derangement. Exam/history not consistent with sepsis, meningitis, subarachnoid hemorrhage, acute aortic pathology. Plan for EKG, chest x-ray, screening labs, IV placement. We will have mental health evaluate patient given his report of depression and hopelessness, although he does denies suicidality to me multiple times during my encounter with him. Pt initially with normal heart rate, however while on monitors Pt noted to have significant sinus bradycardia while at rest, with rates in 30s. During these episodes patient reports that he feels exactly the same as when his heart rate is in normal range. He denies chest pain, lightheadedness, weakness, palpitations, malaise. Heart rate increases when patient stands up or walks around. We will plan for repeat EKG and repeat troponin if initial work-up negative. Labs nondiagnostic. Patient continues to have intermittent sinus bradycardia into 30s, he remains completely asymptomatic. I discussed patient presentation results with Dr. Landrum of cardiology, who reviewed EKGs, recommends stopping valproic acid and switching to alternate bipolar medication as it appears to be the only possible medication-related cause of bradycardia at this point. He also recommended outpatient event monitoring to be ordered through patient's PCP, and will see patient in follow-up as an outpatient. Labs nondiagnostic. Patient remains very well and nontoxic appearing. He has been walking to the emergency department regularly without issue. Eating and drinking in the emergency department without issue. Patient requesting di scharge to home. Mental health has seen patient, no concern for acute suicidality, which concurs with my assessment. They will continue to follow patient as an outpatient. I spoke with patient at length about stopping his valproic acid, he states he has an appointment tomorrow with his provider from [facility] at 9 AM, and will discuss changing medications with her at that time. I had a lengthy discussion with the patient regarding return to emergency department precautions, importance of outpatient follow-up with his PCP and also with cardiology, and home care. Patient verbalized understanding of the plan was amenable. Patient was discharged home with clear plan for outpatient follow-up. All questions were answered. Medical Records Medical records reviewed: Yes I reviewed the patient's medical records. Imaging Data Radiologic Study: Attestation: I personally reviewed and interpreted this imaging study as follows: Radiologist's impression: PA AND LATERAL CHEST: Comparison 07/06/18. The heart is normal in size. The lungs are clear. The mediastinal structures and pleura appear intact. CONCLUSION: Normal chest. Lab Data Lab results reviewed: Yes I reviewed the patient's lab results. Laboratory Tests Range/Units 11/26/18 11/26/18 11/26/18 13:25 13:25 13:25 WBC (4.4-10.8) k/cumm 4.81 RBC (4.50-6.00) m/cumm 4.79 Hgb (13.5-17.5) g/dL 14.4 Hct (40.0-50.0) % 42.7 MCV (80-95) fL 89.1 MCH (27.0-33.0) pg 30.1 MCHC (32.0-36.0) g/dL 33.7 RDW (11.8-14.1) % 13.3 Plt Count (130-400) x1000/uL 157 MPV (8.0-11.0) fL 11.3 H Immature Gran % 0.2 Neutrophils % 56.8 Lymphocytes % 30.6 Monocytes % 11.0 Eosinophils % 1.0 Basophils % 0.4 Absolute Neutrophils (1.2-6.7) k/cumm 2.73 Absolute Lymphocytes (1.2-3.4) k/cumm 1.47 Absolute Monocytes (0.11-0.7) k/cumm 0.53 Absolute Eosinophils (0.0-0.7) k/cumm 0.05 Absolute Basophils (0.0-0.2) k/cumm 0.02 D-Dimer (<500) ng/mlFEU 376 Sodium (136-145) mmol/L 144 Potassium (3.5-5.1) mmol/L 4.8 Chloride (98-107) mmol/L 107 Carbon Dioxide (21.0-32.0) mmol/L 30.1 Anion Gap (3-11) mmol/L 6.9 BUN (7-18) mg/dL 14 Creatinine (0.70-1.30) mg/dL 0.95 Estimated GFR/1.73 m2 (mL/min/1.73m2) >= 60.00 Glucose (70-100) mg/dL 68 L Calcium (8.5-10.1) mg/dL 9.0 Total Bilirubin (0.2-1.0) mg/dL 0.4 AST (15-37) U/L 10 L ALT (12-78) U/L 21 Alkaline Phosphatase (46-116) U/L 55 Troponin I (0.00-0.06) ng/mL < 0.05 Total Protein (6.4-8.2) g/dL 6.5 Albumin (3.4-5.0) g/dL 3.6 TSH (0.358-3.74) uIU/mL Total Valproic Acid (50-100) ug/mL Range/Units 11/26/18 11/26/18 11/26/18 13:25 16:20 17:43 WBC (4.4-10.8) k/cumm RBC (4.50-6.00) m/cumm Hgb (13.5-17.5) g/dL Hct (40.0-50.0) % MCV (80-95) fL MCH (27.0-33.0) pg MCHC (32.0-36.0) g/dL RDW (11.8-14.1) % Plt Count (130-400) x1000/uL MPV (8.0-11.0) fL Immature Gran % Neutrophils % Lymphocytes % Monocytes % Eosinophils % Basophils % Absolute Neutrophils (1.2-6.7) k/cumm Absolute Lymphocytes (1.2-3.4) k/cumm Absolute Monocytes (0.11-0.7) k/cumm Absolute Eosinophils (0.0-0.7) k/cumm Absolute Basophils (0.0-0.2) k/cumm D-Dimer (<500) ng/mlFEU Sodium (136-145) mmol/L Potassium (3.5-5.1) mmol/L Chloride (98-107) mmol/L Carbon Dioxide (21.0-32.0) mmol/L Anion Gap (3-11) mmol/L BUN (7-18) mg/dL Creatinine (0.70-1.30) mg/dL Estimated GFR/1.73 m2 (mL/min/1.73m2) Glucose (70-100) mg/dL Calcium (8.5-10.1) mg/dL Total Bilirubin (0.2-1.0) mg/dL AST (15-37) U/L ALT (12-78) U/L Alkaline Phosphatase (46-116) U/L Troponin I (0.00-0.06) ng/mL < 0.05 Total Protein (6.4-8.2) g/dL Albumin (3.4-5.0) g/dL TSH (0.358-3.74) uIU/mL 1.61 Total Valproic Acid (50-100) ug/mL 40.9 L ECG Data Attestation: I personally reviewed and interpreted this ECG (s) as follows: Interpretation: EKG 1325 shows sinus bradycardia at 41, normal axis, no acute ischemic changes EKG 1427 shows sinus bradycardia 33, normal axis, no acute ischemic changes EKG 1717 shows sinus bradycardia 44, normal axis, no acute ischemic changes HPI General Mode of arrival: ambulatory . Date/Time Provider Initiated Documentation: 11/26/18 12:10 . Limitations to Documentation: no limitations . Information obtained by: patient, RN notes reviewed and old records reviewed . HPI Narrative: Pranav Ochoa is a 58 y/o man with history of bipolar disorder, alcohol use disorder, hypertension presenting to the emergency department with multiple complaints. Patient reports that over the past few months he has had intermittent headaches, chest pain, burning in his nose, burning of his eyes, and general malaise. Patient states that I am sure all of this is related to the mold growing in my apartment. Patient reports that he believes he has mold growing in his apartment that has been there for quite some time and is causing his symptoms. He states that there is no visible mold, however he states that he believes that there is mold as he feels that his landlord does not take care of his apartment. He states that he has tried many avenues including speaking to his landlord, working with [facility], and also going to the reference test clerk and the department of health, with no subsequent adequate intervention. He reports that he feels that nothing is happening, and I cannot live there anymore. Patient reports that he is feeling hopeless and depressed because of his living situation. Patient denies having any current complaints, although he reports that he had headache and chest pain this morning prior to arrival, symptoms now resolved. Patient reports that his chest pain is nonexertional and nonpleuritic, does not seem to have any triggering factors, nothing that he knows of makes it better. He denies fevers, vomiting, diarrhea, numbness/weakness the extremities, rash. He denies suicidality, homicidality, hallucinations. Has been eating and drinking as usual. Related Data Home Medications Medication Instructions Recorded Confirmed divalproex 500 mg tablet,delayed 500 mg PO BID 08/10/18 11/26/18 release naproxen 500 mg tablet 500 mg PO BID #90 tab 09/10/18 11/26/18 aripiprazole 5 mg tablet 5 mg PO QHS tab 11/27/18 Previous Rx's Medication Instructions Recorded naproxen 500 mg tablet 500 mg PO BID #90 tab 09/10/18 Allergies Allergy/AdvReac Type Severity Reaction Status Date / Time Penicillins Allergy Intermediate Skin Rash Verified 11/26/18 12:11 citric acids Allergy Intermediate Hives Uncoded 11/26/18 12:11 mayonaise Allergy Intermediate Hives Uncoded 11/26/18 12:11 General Stated Complaint: GenMedical CLIFFORD: 3 Review of Systems Review of Systems Constitutional: denies fevers, reports malaise, fatigue Eyes: denies eye pain, redness, discharge, reports intermittent eye surface eye burning not currently occurring ENT: denies facial pain, dental pain, sore throat, reports intermittent burning of his nasal passages Cardiovascular: denies edema, reports chest pain Respiratory: denies SOB, cough GI: denies abdominal pain, vomiting, diarrhea : denies flank pain MSK: denies back pain, neck pain, arthralgias, myalgias Skin: denies rash Neuro: denies numbness, weakness, reports headache PFS Medical History Ankle fracture, right Arm fracture, right Bipolar 1 disorder Broken jaw (Acute) Leg fracture, right Surgical History ORIF right ankle ORIF right arm ORIF right femur Social History Smoking/Tobacco Use Status: Current every day Tobacco Type: cigarettes Alcohol Intake: former Drug use: Never Substance use type: does not use and marijuana Adopted: No Foster care: No Housing: apartment Number of Children: 0 What type of physical activity do you participate in: none Drive intox or ride w/intox pick up driver: No Working smoke detector in home: Yes Carbon monox detector in home: Yes Do you feel safe at home: No Do you feel safe in your relationship?: Yes Additional Social history: thinks apt is unliveable. Exam Narrative Exam Narrative: Constitutional: well and [id number], pleasant, conversing normally HENT: head atraumatic/normocephalic/normal inspection, mucous membranes moist, normal oropharynx Eyes: conjunctiva normal, sclera normal, pupils 3mm b/l Neck: no stridor, normal ROM, trachea midline Chest: normal inspection Resp: normal work of breathing, LCTAB Cardio: normal rate, normal rhythm, no murmur appreciated GI: abdomen soft, non-tender, non-distended Back: normal inspection, no rash Skin: warm, dry, normal color, no rash Neuro: alert, not altered, grossly non-focal, normal tone Ext: no LE edema Psych: somewhat anxious mood, normal affect, normal behavior though somatically preoccupied, no apparent kleber or hallucinations Course Vital Signs Temperature 37.0 C 11/26/18 12:07 Pulse 65 11/26/18 12:07 Respiratory Rate 16 11/26/18 12:07 Blood Pressure 105/74 11/26/18 12:07 Pulse Oximetry 99 11/26/18 12:07 Temperature 37.0 C 11/26/18 12:07 Temperature Source Temporal Artery Scan 11/26/18 12:07 Pulse 65 11/26/18 12:07 Respiratory Rate 16 11/26/18 12:07 Blood Pressure 105/74 11/26/18 12:07 Blood Pressure Position Sitting 11/26/18 12:07 Pulse Oximetry 99 11/26/18 12:07 Oxygen Delivery Method Room Air 11/26/18 12:07 Oxygen Flow Rate 0 11/26/18 12:07 Pain Level 8 11/26/18 12:07
--- NOTE | 2018-11-26 13:05 | DI.RAD_ITS ---
SYMPTOMS/DIAGNOSIS: CHEST PAIN PA AND LATERAL CHEST: Comparison 07/06/18. The heart is normal in size. The lungs are clear. The mediastinal structures and pleura appear intact. CONCLUSION: Normal chest.
[2018-11-26 13:44] LABS: Abs Immature Grans 0.01 k/cumm (0.0-0.09); Absolute Basophil Count 0.02 k/cumm (0.0-0.2); Absolute Eosinophil Count 0.05 k/cumm (0.0-0.7); Absolute Lymphocyte Count 1.47 k/cumm (1.2-3.4); Absolute Monocyte Count 0.53 k/cumm (0.11-0.7); Absolute Neutrophil Count 2.73 k/cumm (1.2-6.7); Basophils % 0.4; HCT 42.7 % (40.0-50.0); HGB 14.4 g/dL (13.5-17.5); Immature Grans % 0.2; Lymphocytes % 30.6; Mean Corp. HGB Concentration 33.7 g/dL (32.0-36.0); Mean Corpuscular Hemoglobin 30.1 pg (27.0-33.0); Mean Corpuscular Volume 89.1 fL (80-95); Mean Platelet Volume 11.3 fL (8.0-11.0); Neutrophils % 56.8; Platelet Count 157 x1000/uL (130-400); RBC 4.79 m/cumm (4.50-6.00); RBC Distribution Width 13.3 % (11.8-14.1); White Blood Cell Count 4.81 k/cumm (4.4-10.8)
[2018-11-26 14:01] LABS: ALT 21 U/L (12-78); AST 10 U/L (15-37); Albumin 3.6 g/dL (3.4-5.0); Alkaline Phosphatase 55 U/L (46-116); Anion Gap 6.9 mmol/L (3-11); BUN 14 mg/dL (7-18); Bilirubin, Total 0.4 mg/dL (0.2-1.0); CO2 30.1 mmol/L (21.0-32.0); CREATININE 0.95 mg/dL (0.70-1.30); Chloride 107 mmol/L (98-107); Glucose 68 mg/dL (70-100); Potassium 4.8 mmol/L (3.5-5.1); Sodium 144 mmol/L (136-145); Total Protein 6.5 g/dL (6.4-8.2); Troponin I < 0.05 ng/mL (0.00-0.06)
[2018-11-26 14:18] LABS: D-Dimer 376 ng/mlFEU (<500)
--- NOTE | 2018-11-26 14:25 | NUR.NOTE ---
Nursing Note: pt persistently bradycardic. HR 35 bpm. EKG repeated and given to MD Oliva
[2018-11-26 14:50] LABS: TSH (W/Ref FT4) 1.61 uIU/mL (0.358-3.74)
--- NOTE | 2018-11-26 15:49 | PDOC.MHCN ---
Date of service: 11/26/18 Time of Service: 15:50 Mental Health Crisis Note Presenting Issue How did you arrive at the ED and why did you come: Pranav presents at the ER for medical reasons. He reports feeling depressed so [facility] requests a mental health evaluation. Precipitating Factors Pranav denies SI and HI but states that sometimes he wishes he didn't wake up in the morning. He states he hates living the way he is living. He doesn't want to be on probation and wants to live in a better apartment. He is convinced that there is mold in his apartment and that mold spores are getting into his lungs and are causing migraine headaches, which he reports having for the past 2 months. Upon further exploration, Pranav denies any intention of harming himself and admits that his passive suicidal thoughts are related to his living conditions. Disposition BEHAVIOR: Cooperative. EYE CONTACT: Appropriate. MOOD: Euthymic. AFFECT: Normal. APPETITE: Good. SLEEP(trouble falling/staying asleep: Reports difficulty sleeping due to frequent migraine headaches. Plan Plan is for Pranav to return home once medically cleared. He will follow-up with his therapist, Loan Cody, and medication provider, Gilda Resendez aprn, at [facility] as scheduled. Pranav is being referred to [facility] [employer] for assistance in finding new housing. He knows how to contact [facility] emergency services and will call as needed. Signature Clinician's Name/Title: Paola Carpenter BA, [facility] Visual C Developer
--- NOTE | 2018-11-26 16:45 | NUR.NOTE ---
Nursing Note: pt provided snack at request. pt ate one container of yogurt and two packs of crackers. pt ate entire snack, tolerated well.
[2018-11-26 16:52] LABS: Troponin I < 0.05 ng/mL (0.00-0.06)
[2018-11-26 18:07] LABS: VALPROIC ACID 40.9 ug/mL (50-100)
--- NOTE | 2018-11-27 08:22 | NUR.NOTE ---
Addendum entered by Sushma Reyes 11/29/18 10:08: Dr. Landrum sent referral back with note that the PCP order a holter then schedule with cardiology for 1 wk later. Referral was faxed to [facility] Medicine with Dr. Landrum note for follow up and order of holter. Sushma Reyes. Original Note: F/U referral faxed to Cardiology, case discussed with Dr Landrum.Nursing Note:
== END 2018-11-26 18:25 | disposition home or self-care (01) ==
PROVIDERS: Emergency Provider Student in an Organized Health Care Education/Training Program; PCP Family Medicine
DX: F31.9 Bipolar disorder, unspecified (principal); R51 Headache; R07.9 Chest pain, unspecified; G89.29 Other chronic pain; R00.1 Bradycardia, unspecified
CPT/HCPCS: 36415; 80053; 93005; 99285; 71046; 80164; 84443; 84484; 85025; 85379; 93010

== ENCOUNTER 2018-12-19 12:16 | Emergency (ER) | payer MEDICARE, MEDICAID, SELFPAY ==
[2018-12-19 12:20] VITALS: BP 104/75; PULSE 75; RESP 16; TEMP 36.6; O2SAT 96
--- NOTE | 2018-12-19 12:39 | ED.GENADUL_ITS ---
Discharge Plan Disposition Patient Disposition: HOME Condition: Improving Discharge Details Chief Complaint: Nk/Back Pain Clinical Impression: Back strain Primary Care Provider: Roman Bryan ED Provider: Romario Taylor Home Meds and New Rx's Prescriptions: New methocarbamol 500 mg tablet 500 mg PO Q6H PRN (Reason: Back pain or spasm) Qty: 10 RF: 0 Continued divalproex [Depakote] 500 mg tablet,delayed release (DR/EC) 500 mg PO HS RF: 0 aripiprazole [Abilify] 5 mg tablet 5 mg PO QHS RF: 0 Discharge Instructions Instructions: Lower Back Exercises (ED) Additional Instructions: Please methocarbamol, as prescribed, as needed for pain or spasm. Continue to hydrate liberally today. Remove the Lidoderm patch in 12 hours time. Return for development of a rash, worsening discomfort, change to urine, or any other acute concern Medical Decision Making 58-year-old male presents from home complaining of 4 days of left back pain that began after lifting a heavy television. His vital signs are normal on he has mildly reproducible discomfort along the left paraspinous musculature. Differential diagnosis would include renal colic or pyelonephritis. Screening urinalysis obtained. UA without evidence of blood or other abnormality. Will treat with Lidoderm patch, small amount of methocarbamol. He is stable for discharge home at this time HPI General Mode of arrival: ambulatory . Date/Time Provider Initiated Documentation: 12/19/18 12:19 . Information obtained by: patient . History of Present Illness 58 year old M presents to the emergency department with the chief complaint of Left back pain after lifting a television, described as mild, Quality is described as constant, and is localized to the back and left. Patient reports no radiation. Patient started experiencing this day(s) and it has been intermittent. Rest improves symptom(s), Movement worsens symptoms . Patient notes denies fever/chills. Patient did receive the following treatments prior to arrival, none Related Data Home Medications Medication Instructions Recorded Confirmed divalproex 500 mg tablet,delayed 500 mg PO HS 08/10/18 12/19/18 release aripiprazole 5 mg tablet 5 mg PO QHS tab 11/27/18 12/19/18 methocarbamol 500 mg PO Q6H PRN #10 tab 12/19/18 Previous Rx's Medication Instructions Recorded methocarbamol 500 mg PO Q6H PRN #10 tab 12/19/18 Allergies Allergy/AdvReac Type Severity Reaction Status Date / Time Penicillins Allergy Intermediate Skin Rash Verified 12/19/18 12:27 citric acids Allergy Intermediate Hives Uncoded 12/19/18 12:27 mayonaise Allergy Intermediate Hives Uncoded 12/19/18 12:27 General Stated Complaint: Nk/Back Pain CLIFFORD: 3 Review of Systems Review of Systems 6 systems reviewed and otherwise negative [facility] Medical History Ankle fracture, right Arm fracture, right Bipolar 1 disorder Broken jaw (Acute) Leg fracture, right Surgical History ORIF right ankle ORIF right arm ORIF right femur Social History Smoking/Tobacco Use Status: Current every day Tobacco Type: cigarettes Alcohol Intake: former Drug use: Never Substance use type: does not use and marijuana Adopted: No Foster care: No Housing: apartment Number of Children: 0 current occupation: disability. What type of physical activity do you participate in: none Drive intox or ride w/intox port cdl a driver: No Working smoke detector in home: Yes Carbon monox detector in home: Yes Do you feel safe at home: No Do you feel safe in your relationship?: Yes Additional Social history: thinks apt is unliveable. Exam Narrative Exam Narrative: GEN: awake, alert, oriented 3. Pleasant, well groomed, interactive. HEAD: Normocephalic, atraumatic ENT: Mucous membranes moist, oropharynx unremarkable, External ear exam unremarkable EYES: PERRL, EOMI NECK: Full ROM, no REDDY, no menigismus CHEST/RESP: Nontender, clear to auscultation bilateral, no wheeze/rhonchi/rales CARDIOVASCULAR: RRR, no murmur, rub kennedy. 2+ Rad pulse bilateral ABDOMEN: Soft, nontender, no mass. +Bowel sounds Back: Tender left paraspinous musculature with mild spasm present. No rash. No midline step-off, deformity. EXT: Full ROM, no edema, no rash Neuro: Grossly normal neurologic exam, conversant, interactive. Psych: Speech fluent, thoughts congruent, affect normal Course Vital Signs Temperature 36.6 C 12/19/18 12:20 Pulse 75 12/19/18 12:20 Respiratory Rate 16 12/19/18 12:20 Blood Pressure 104/75 12/19/18 12:20 Pulse Oximetry 96 12/19/18 12:20 Temperature 36.6 C 12/19/18 12:20 Temperature Source Temporal Artery Scan 12/19/18 12:20 Pulse 75 12/19/18 12:20 Respiratory Rate 16 12/19/18 12:20 Blood Pressure 104/75 12/19/18 12:20 Blood Pressure Position Sitting 12/19/18 12:20 Pulse Oximetry 96 12/19/18 12:20 Oxygen Delivery Method Room Air 12/19/18 12:20 Oxygen Flow Rate 0 12/19/18 12:20 Pain Level 8 12/19/18 12:20
[2018-12-19 12:56] LABS: Bilirubin Negative (Negative); Blood Negative (Negative); Clarity Clear (Clear); Glucose Negative (Negative); Ketones Negative (Negative); Leukocyte Esterase Negative (Negative); Nitrite Negative (Negative); Urobilinogen 0.2 EU/dL (Up TO 0.2)
[2018-12-19] MEDS: Lidocaine 5% Patch 1 PATCH TP (13:04)
== END 2018-12-19 13:21 | disposition home or self-care (01) ==
PROVIDERS: Emergency Provider Emergency Medicine; PCP Family Medicine
DX: S39.012A Strain of muscle, fascia and tendon of lower back, initial encounter (principal); X50.0XXA Overexertion from strenuous movement or load, initial encounter
CPT/HCPCS: 99283; 81003

== ENCOUNTER → 2019-01-24 13:41 | Outpatient (BNVA) | payer MEDICARE, MEDICAID, SELFPAY | PROVIDERS: PCP Family Medicine; Referring Provider Family Medicine; Visit Provider Physical Therapy Assistant | DX: Z12.11 Encounter for screening for malignant neoplasm of colon (principal); Z86.010 Personal history of colon polyps ==

== ENCOUNTER 2019-02-18 06:58 | Day surgery (SDC) | payer MEDICARE, MEDICAID, SELFPAY ==
--- NOTE | 2019-02-18 06:43 | W.COLOREPORT ---
Date of service: 02/18/19 Time of Service: 08:18 Colonoscopy Report Date of procedure: 02/18/19 Pre-op diagnosis general: Hx of colon polyps Post-op diagnosis procedure note: other (Same and polyps) Procedure: Colonoscopy with polypectomy Surgeon: Dennise Perdomo Anesthesia proc note operative: other (General/ ASA 2/True Chicas CRNA) Estimated blood loss (mL): 5 Pathology: other (Ascending colon polyps x2) Complications: None Disposition: same day Indications: Mr. Ochoa is a pleasant 58 year old s/p Colonoscopy in 2014. 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 He is here for a follow up. Risks, benefits and complications have been reviewed. Complications include but are not limited to bleeding, pain, perforation, missed small lesion/polyp, sore throat, aspiration and adverse reaction to the medications. Questions were entertained and answered to their satisfaction and they wished to proceed. No guarantees were given or implied. Prep: Miralax/Dulcolax Procedure Start Time: :18 Procedure End Time: 08:43 Retraction Time: 17 minutes Findings: 2 sessile polyps in the ascending colon Procedure Description: After informed consent was obtained the patient was taken to the procedure room and placed in a left decubitous position. Monitors were applied and a time out was done. The patients name, date of , procedure, allergies to medications and metal in their body was reviewed. The patient was then sedated. Once sedated and comfortable a rectal exam was done. External exam was normal. Internal exam revealed a normal sphincter tone and no palpable masses. The prostate felt smooth. The scope was then introduced and retro-felexed. No internal hemorrhoids, masses or polyps were identified on retro-flexion. The scope was then advanced to the cecum without difficulty. The TI and appendiceal orifice were identified. The prep was adequate. The scope was then slowly retracted over 17 minutes back into the rectum. Polyps were removed with cold forceps in the ascending colon x2. The scope was removed and the patient was woken up and taken back to Same day surgery in stable condition. The patient tolerated the procedure well and there were no immediate complications. Follow up: The patient should follow up in 3-5 years unless they develop changes in bowel habits or other new gastrointestinal complaints.
--- NOTE | 2019-02-18 06:45 | W.PM.DSUDISC ---
Discharge Plan Disposition Patient Disposition: HOME Condition: Good Discharge Details Reason For Visit: Hx of polyps Attending Provider: Dennise Perdomo Primary Care Provider: Roman Bryan Home Meds and New Rx's Prescriptions: Continued divalproex [Depakote] 500 mg tablet,delayed release (DR/EC) 500 mg PO HS RF: 0 aripiprazole [Abilify] 5 mg tablet 5 mg PO QHS RF: 0 Discontinued polyethylene glycol 3350 17 gram/dose powder 238 g PO ONCE Qty: 238 RF: 0 bisacodyl [Dulcolax (bisacodyl)] 5 mg tablet,delayed release (DR/EC) 5 mg PO ONCE Qty: 4 RF: 0 Discharge Instructions Instructions: Colonoscopy (DC), Colorectal Polyps (DC) Additional Instructions: Findings: 2 polyps Follow up: 3-5 years depending on final pathology Please call if you develop: fevers >101.5 Nausea or Vomiting Abdominal pain that is not transient DAY SURGERY UNIT POST ENDOSCOPY INSTRUCTIONS 1. Because there will be medication in your system for the next 24 hours, you may feel a little sleepy. Your coordination will be affected. Therefore: a. Do not drive or operate dangerous equipment for 24 hours. b. Do not drink alcohol beverages for 24 hours (not even beer). c. Plan to go home and rest for the day. 2. Generally there are no restrictions on your activity after a day or so has gone by, but you may feel a bit fatigued for a few days. 3 After you arrive home you may have a light meal and return to a normal diet as you can tolerate it without feeling sick to your stomach. 4. After surgery, you may feel pain or discomfort. This should be only transient, but if it persists please contact your doctor. 5. If there are any questions regarding the findings of your procedure, please feel free to contact your doctor. 6. If you are unable to contact your doctor with a problem, contact the hospital at [phone]. 7. Continue all your regular medications unless directed otherwise. I understand the above instructions and have no questions. Signature of Patient or Responsible Adult Escort Date/Time Name of Responsible Adult Escort Signature of Nurse Date/Time Activity:: Activity as Tolerated Diet:: As Tolerated Discharge Orders Discharge Orders: Discharge Order (Routine); Ordered 02/18/19 Ordered By: Dennise Perdomo DS: Diagnosis Discharge Diagnosis (1) S/P colonoscopy: Status: Acute (2) Colorectal polyp detected on colonoscopy: Status: Acute
[2019-02-18 07:23] VITALS: BP 100/72; PULSE 77; RESP 16; TEMP 36.8; O2SAT 97
[2019-02-18 07:31] VITALS: BP 100/72; PULSE 77; RESP 16; TEMP 36.8; O2SAT 97
[2019-02-18] MEDS: Lactated Ringers 1,000 ML 80 ML IV (07:55)
--- NOTE | 2019-02-18 08:27 | BOWEL_PTH ---
PATIENT: Pranav Ochoa LOC: [facility] U#:[id number] AGE/SX: 58/M ROOM: RE02/18/[address]: Dennise Perdomo MD : 1960 BED: DIS: 02/18/2019 SPEC #: [id number] RECD: 02/18/19 12:40 STATUS: [place] REQ #: [id number] RANDY: 02/18/19 08:[address]: Dennise Perdomo DEPT: Surgical Specimen RECD BY: Pari Yost ENTERED: 02/18/19 12:41 SP TYPE: Bowel OTHR DR: Roman Bryan DO Tissues: 1 - BIOPSY BOWEL Procedures: GROSS AND MICRO LEVEL 4 Comments: [id number]
[2019-02-18 09:20] VITALS: BP 117/71; PULSE 68; RESP 16; TEMP 36.4; O2SAT 97
== END 2019-02-18 10:27 | disposition home or self-care (01) ==
LOC: SUR 06:59
PROVIDERS: PCP Family Medicine; Visit Provider Surgery
PROC: 0DJD8ZZ Inspection of Lower Intestinal Tract, Via Natural or Artificial Opening Endoscopic (ICD-10-PCS; CPT 45378; principal; 2019-02-18 08:15)
DX: Z12.11 Encounter for screening for malignant neoplasm of colon (principal); D12.2 Benign neoplasm of ascending colon; Z86.010 Personal history of colon polyps
CPT/HCPCS: 45380; 88305; J2250; J3010

== ENCOUNTER 2019-05-06 10:36 | Outpatient (CLI) | payer MEDICARE, MEDICAID, SELFPAY ==
[2019-05-06 11:17] LABS: Abs Immature Grans 0.01 k/cumm (0.0-0.09); Absolute Basophil Count 0.02 k/cumm (0.0-0.2); Absolute Eosinophil Count 0.12 k/cumm (0.0-0.7); Absolute Lymphocyte Count 1.82 k/cumm (1.2-3.4); Absolute Monocyte Count 0.59 k/cumm (0.11-0.7); Absolute Neutrophil Count 4.57 k/cumm (1.2-6.7); Basophils % 0.3; Eosinophils % 1.7; HCT 44.9 % (40.0-50.0); HGB 15.1 g/dL (13.5-17.5); Immature Grans % 0.1; Lymphocytes % 25.5; Mean Corp. HGB Concentration 33.6 g/dL (32.0-36.0); Mean Corpuscular Hemoglobin 29.8 pg (27.0-33.0); Mean Corpuscular Volume 88.6 fL (80-95); Mean Platelet Volume 10.7 fL (8.0-11.0); Monocytes % 8.3; Neutrophils % 64.1; Platelet Count 186 x1000/uL (130-400); RBC 5.07 m/cumm (4.50-6.00); RBC Distribution Width 13.2 % (11.8-14.1); White Blood Cell Count 7.13 k/cumm (4.4-10.8)
[2019-05-06 11:57] LABS: VALPROIC ACID 19.5 ug/mL (50-100)
[2019-05-06 12:58] LABS: ALT 26 U/L (16-63); AST 16 U/L (15-37); Albumin 3.9 g/dL (3.4-5.0); Alkaline Phosphatase 61 U/L (46-116); Anion Gap 6.9 mmol/L (3-11); BUN 10 mg/dL (7-18); Bilirubin, Total 0.4 mg/dL (0.2-1.0); CO2 29.1 mmol/L (21.0-32.0); CREATININE 0.93 mg/dL (0.70-1.30); Calcium 9.5 mg/dL (8.5-10.1); Chloride 106 mmol/L (98-107); Glucose 97 mg/dL (74-106); Potassium 4.9 mmol/L (3.5-5.1); Sodium 142 mmol/L (136-145); Total Protein 7.1 g/dL (6.4-8.2)
== END 2019-05-06 10:56 ==
PROVIDERS: PCP Family Medicine; Visit Provider Nurse Practitioner Family
DX: F31.32 Bipolar disorder, current episode depressed, moderate (principal); Z51.81 Encounter for therapeutic drug level monitoring; Z79.899 Other long term (current) drug therapy
CPT/HCPCS: 36415; 80053; 80164; 85025

== ENCOUNTER 2019-11-09 13:28 | Outpatient (REF) | payer MEDICARE, SELFPAY | END 2019-11-09 13:48 | LOC: LBN 13:28 | PROVIDERS: PCP Family Medicine; Visit Provider Family Medicine | DX: K90.9 Intestinal malabsorption, unspecified (principal) | CPT/HCPCS: 87329 ==

== ENCOUNTER 2019-11-20 01:39 | Outpatient (CLI) | payer MEDICARE, MEDICAID, SELFPAY ==
--- NOTE | 2019-11-20 06:45 | DI.US_ITS ---
EXAM: US ABDOMEN CLINICAL HISTORY: 1-2 months of steatorrhea, attn: pancreas TECHNIQUE: Ultrasound abdomen performed using standard protocol. COMPARISON: CT CHEST ABD PELVIS WITH CONTRAST from 11/16/2016 FINDINGS: LIVER: Normal size and echogenicity. No focal liver lesions are seen.. GALLBLADDER: No evidence of cholelithiasis. No evidence of wall thickening. No pericholecystic fluid identified. MILIAN'S SIGN: Negative. BILIARY SYSTEM: No intrahepatic or extrahepatic biliary ductal dilation. KIDNEYS: Kidneys are symmetric in size. There is a question of tiny bilateral renal calculi versus ar tifact. No evidence of hydronephrosis. A 2.5 centimeter cyst is seen at the lower pole of the left k idney. There is a 2.1 centimeters cyst in the mid to upper pole of the kidney. No suspicious masses are seen. PANCREAS: Normal where visualized. SPLEEN: Not enlarged. ABDOMINAL AORTA AND IVC: Visualized portions normal caliber. ASCITES: None seen. IMPRESSION: No gross pancreatic abnormality. Ultrasound is relatively insensitive for evaluation of the pancreas . There is a question of tiny bilateral nonobstructing renal calculi versus artifact. DATA REPOSITORY:
== END 2019-11-20 01:59 ==
PROVIDERS: PCP Family Medicine; Visit Provider Family Medicine
DX: K90.89 Other intestinal malabsorption (principal); N28.1 Cyst of kidney, acquired
CPT/HCPCS: 76700

== ENCOUNTER 2021-04-30 16:39 | Outpatient (REF) | payer MEDICARE, SELFPAY ==
[2021-05-01 17:18] LABS: COVID-19 RT-PCR UVMMC Result Negative (Negative)
== END 2021-04-30 16:40 | disposition home or self-care (01) ==
LOC: LBN 16:39
PROVIDERS: PCP Family Medicine; Visit Provider Student in an Organized Health Care Education/Training Program
DX: Z20.822 Contact with and (suspected) exposure to COVID-19 (principal); J34.89 Other specified disorders of nose and nasal sinuses
CPT/HCPCS: U0003; U0005

== ENCOUNTER 2021-06-08 21:15 | Outpatient (REF) | payer OTHER, SELFPAY ==
[2021-06-08 21:55] LABS: Abs Immature Grans 0.03 10^3/uL (0.0-0.06); Absolute Basophil Count 0.06 10^3/uL (0.0-0.2); Absolute Eosinophil Count 0.11 10^3/uL (0.0-0.7); Absolute Lymphocyte Count 2.51 10^3/uL (1.2-3.4); Absolute Monocyte Count 0.76 10^3/uL (0.1-0.8); Basophils % 0.7; Eosinophils % 1.2; HCT 45.3 % (40.0-50.0); HGB 15.2 g/dL (13.5-17.5); Immature Grans % 0.3; Lymphocytes % 27.4; MCHC 33.6 % (32.0-36.0); MCV 89.3 fL (80-95); MPV 11.8 fL (8.0-11.0); Monocytes % 8.3; Neutrophils % 62.1; Nucleated RBC 0 %; Platelet Count 208 10^3/uL (130-400); RBC 5.07 10^6/uL (4.36-5.78); RDW 12.8 % (11.8-14.1); RDW-SD 42.1 fL; WBC 9.17 10^3/uL (4.4-10.8)
[2021-06-08 22:00] LABS: Bilirubin Negative (Negative); Blood Negative (Negative); Clarity Clear (Clear); Glucose Negative (Negative); Ketones Negative (Negative); Leukocyte Esterase Negative (Negative); Nitrite Negative (Negative); Urobilinogen 0.2 EU/dL (Up TO 0.2); pH 5.5 (5-8)
[2021-06-08 22:05] LABS: Iron 88 ug/dL (65-175)
[2021-06-08 22:06] LABS: VALPROIC ACID 31.4 ug/mL
[2021-06-08 22:15] LABS: ALT 64 U/L (16-63); AST 26 U/L (15-37); Albumin 4.1 g/dL (3.4-5.0); Alkaline Phosphatase 73 U/L (46-116); Anion Gap 10.1 mmol/L (3-11); BUN 12 mg/dL (7-18); Bilirubin, Total 0.5 mg/dL (0.2-1.0); CO2 24.9 mmol/L (21.0-32.0); CREATININE 0.9 mg/dL (0.70-1.30); Calcium 9.3 mg/dL (8.5-10.1); Chloride 102 mmol/L (98-107); Glucose 88 mg/dL (74-106); Potassium 4.3 mmol/L (3.5-5.1); Sodium 137 mmol/L (136-145); TSH (W/Ref FT4) 2.41 uIU/mL (0.36-3.74); Total Protein 7.4 g/dL (6.4-8.2)
[2021-06-10 13:28] LABS: COVID-19 RT-PCR UVMMC Result Negative (Negative)
== END 2021-06-08 21:16 | disposition home or self-care (01) ==
LOC: LBN 21:15
PROVIDERS: PCP Family Medicine; Visit Provider Nurse Practitioner Family
DX: G44.52 New daily persistent headache (NDPH) (principal); R19.7 Diarrhea, unspecified; R53.1 Weakness; Z20.822 Contact with and (suspected) exposure to COVID-19; J06.9 Acute upper respiratory infection, unspecified
CPT/HCPCS: 80053; U0003; U0005; 80164; 81003; 83540; 83735; 84443; 85025

== ENCOUNTER 2021-06-23 01:40 | Outpatient (CLI) | payer OTHER, SELFPAY ==
[2021-06-23 15:04] LABS: ESR 5 mm/hr (0-20)
[2021-06-23 16:17] LABS: C-Reactive Protein 0.06 mg/dL (0.0-0.3)
== END 2021-06-23 01:41 | disposition home or self-care (01) ==
LOC: LBO 01:40
PROVIDERS: PCP Family Medicine; Visit Provider Family Medicine
DX: R20.2 Paresthesia of skin (principal)
CPT/HCPCS: 36415; 85652; 86140

== ENCOUNTER → 2021-08-31 13:43 | Outpatient (BNVA) | payer OTHER, SELFPAY | PROVIDERS: PCP Family Medicine; Referring Provider Family Medicine; Visit Provider Nurse Practitioner Adult Health | DX: R51.9 Headache, unspecified (principal); Z72.0 Tobacco use | CPT/HCPCS: 64405; 99204; 99214 ==

== ENCOUNTER 2021-09-16 03:16 | Outpatient (CLI) | payer OTHER, SELFPAY ==
--- NOTE | 2021-09-16 08:00 | DI.MRI_ITS ---
Exam(s) MR BRAIN WO EXAM: MR BRAIN WO CLINICAL HISTORY: new persistent headaches,r51.9 TECHNIQUE: Multiplanar multisequence MRI of the brain was performed. COMPARISON: No exams were available for comparison FINDINGS: The ventricular system is normal in appearance. No signal abnormality identified in the brain. The orbital and temporal bone structures appear intact as does the pituitary. Diffusion weighted imaging shows no evidence of infarction. Susceptibility weighted imaging shows no evidence of intracranial hemorrhage. There is normal flow void in the syc[place] of Gibbs vasculature. IMPRESSION: Normal brain MRI DATA REPOSITORY:
== END 2021-09-16 03:36 ==
PROVIDERS: PCP Family Medicine; Visit Provider Nurse Practitioner Adult Health
DX: R51.9 Headache, unspecified (principal)
CPT/HCPCS: 70551

== ENCOUNTER → 2021-10-20 09:17 | Outpatient (BNVA) | payer OTHER, SELFPAY | PROVIDERS: PCP Family Medicine; Referring Provider Family Medicine; Visit Provider Nurse Practitioner Adult Health | DX: F31.9 Bipolar disorder, unspecified (principal); F17.210 Nicotine dependence, cigarettes, uncomplicated; G89.29 Other chronic pain; R51.9 Headache, unspecified | CPT/HCPCS: 99213; 99214 ==

== ENCOUNTER → 2021-11-26 01:00 | Outpatient (CLI) | payer OTHER, SELFPAY ==
--- OUTSIDE RECORDS SUMMARY | 2021-11-26 01:02 | XMS_ITS | Clinical Summary ---
:[address] [facility] Address [address] [place] [address] Care Team Providers Name Role Phone Roman Bryan DO Primary Care Provider Social History Tobacco Use Types Packs/Day Years Used Date Never Assessed Sex Assigned at Date Recorded Not on file Plan of Treatment Not on file Care Teams Clerk Analyst Relationship Specialty Start Date End Date Roman Bryan DO PCP - General 02/20/19 [address] [place] [phone]
--- OUTSIDE RECORDS SUMMARY | 2021-11-26 01:02 | XMS_ITS | Encounter Summary ---
:[address] [facility] Address [address] [place] [address] Care Team Providers Name Role Phone Roman Bryan Primary Care Provider Encounter Details Date Type Department Care Team Description 04/30/2021 Lab Requisition [facility] Outr Resulting Lab, Pathology & Laboratory Provider [facility] [address] [place], [place] [id number] Social History Tobacco Use Types Packs/Day Years Used Date Never Assessed Sex Assigned at Date Recorded Not on file documented as of this encounter Plan of Treatment Not on filedocumented as of this encounter Procedures Procedure Name Priority Date/Time Associated Diagnosis Comme nts COVID-19 TEST [facility] Today 04/30/2021 16:00 LAB PCR EST COVID-19 TESTING Routine 04/30/2021 16:00 Results for this EST procedure are i n the results section. documented in this encounter Results COVID-19 TEST [facility] PCR (04/30/2021 16:00 EST) Specimen Swab Performing Organization Address City/State/ZIP Code Phon e Number [facility] [address] [place] [address] SERVICES COVID-19 TESTING (04/30/2021 16:00 EST) COVID-19 rt-PCR Negative Negative [facility]ICAL Result Comment: [facility] This test has not been FDA c leared or approved. This test has been authorized by FDA under an EUA for use by authorized laboratories. This test has been authorized only for detection of nucleic acid fro SERVICES m 2018-nCoV, not for any oth er viruses or pathogens. This test is only authorized for the duration of the declaration that circumstances exist justifying the authorization of emergency use of in vitro d iagnostic tests for detectio n and/or diagnosis of 2019-nCoV under section 564(b)(1) of Act, 21 U.S.C ?? 360bbb-3(b) (1), unless the authorization is terminated or revoked sooner. Negative results do not prec lude 2019-nCoV infection and should not be used as the sole basis for treatment or other patient management decisions. Negative results must be combined with clinical observa tions, patient history, and epidemiological informatio n. This test was developed and its performance characteristics determined by [facility]. It has not been cleared or approved by the US Food and Drug Administration. FDA does not require this test to go through premarket FDA review. This t est is used for clinical purposes. It should not be regarded as investigational or for research. This laboratory is certified under the Clinical Laboratory Improvement Amendm ents (CLIA) as qualified to perform high complexity clinical laboratory testing. This test is based on the CD C COVID-19 Emergency Use Authorization (EUA) assay, with minor modification as defined by the FDA Performed on the [employer] Software 7 Flex RT-PCR System. Performing Lab [facility] Lab [facility] SERVICES Specimen Swab Performing Organization Address City/State/ZIP Code Phon e Number [facility] [address] [place] [address] SERVICES documented in this encounter Visit Diagnoses Not on filedocumented in this encounter Care Teams Manager Environmental Relationship Specialty Start Date End Date Roman Bryan DO PCP - General 02/20/19 [address] [place] [phone] documented as of this encounter
--- OUTSIDE RECORDS SUMMARY | 2021-11-26 01:02 | XMS_ITS | Encounter Summary ---
:1960 Author Organization [facility] Address [address] [place] [address] Care Team Providers Name Role Phone Roman Bryan DO Primary Care Provider Encounter Details Date Type Department Care Team Description 11/10/2019 Lab Re[address] [facility] Outr Resulting Lab, Pathology & Laboratory Provider [facility] [address] [place] [address] Social History Tobacco Use Types Packs/Day Years Used Date Never Assessed Sex Assigned at Date Recorded Not on file documented as of this encounter Plan of Treatment Not on filedocumented as of this encounter Procedures Procedure Name Priority Date/Time Associated Comments Diagnosis GIARDIA AND Routine 11/09/2019 10:45 Results for this CRYPTOSPORIDIUM ANTIGENS EDT pro cedure are in the results section. documented in this encounter Results GIARDIA AND CRYPTOSPORIDIUM ANTIGENS (11/09/2019 10:45 EDT) Giardia and Cryptosporidium Cryptosporidium [facility] Cryptosporidium Antigen Neg and Antigen Neg and CENTER Giardia Antigen Neg Giardia Antigen Neg LABORATORY SERVICES Specimen Feces - Specimen from rectum (specimen) Performing Organization Address City/State/ZIP Code Phon e Number [facility] [address] [place] [address] SERVICES documented in this encounter Visit Diagnoses Not on filedocumented in this encounter Care Teams Lead Programmer Relationship Specialty Start Date End Date Roman Bryan, PCP - General 02/20/[address] [place], [place] [address] [phone] documented as of this encounter
--- OUTSIDE RECORDS SUMMARY | 2021-11-26 01:02 | XMS_ITS | Encounter Summary ---
:1960 Author Organization [facility] Address [address] [place] [address] Care Team Providers Name Role Phone Unknown, Provider Primary Care Provider Encounter Details Date Type Department Care Team Description 12/02/2009 Results Only [facility] Unknown, Dominique ortega MD Laboratory Services - [facility] [address] [place] [address] Social History Tobacco Use Types Packs/Day Years Used Date Never Assessed Sex Assigned at Date Recorded Not on file documented as of this encounter Plan of Treatment Not on filedocumented as of this encounter Procedures Procedure Name Priority Date/Time Associated Comments Diagnosis COMPLETE BLOOD COUNT Routine 12/02/2009 7:30 Resu lts for this AND DIFFERENTIAL EDT procedure a re in the results section. BILIRUBIN Routine 12/02/2009 7:30 Results for this DIRECT/INDIRECT EDT procedure ar e in the results section. VALPROIC ACID LEVEL Routine 12/02/2009 7:30 Resul ts for this EDT procedure are i n the results section. COMPREHENSIVE Routine 12/02/2009 7:30 Results for this METABOLIC PANEL (CMP) EDT proced ure are in the results section. documented in this encounter Results (ABNORMAL) VALPROIC ACID (12/02/2009 7:30 EDT) Pathologist Sig nature Valproic Acid 31.7 (L) 50.0 - 100.0 ug/ml [facility] Specimen Performing Organization Address City/State/ZIP Code Phon e Number [facility] [address] [place] [address] SERVICES [facility] [address] [place] [address] DIRECT BILIRUBIN (12/02/2009 7:30 EDT) Pathologist Sig nature Conjugated Bilirubin 0.0 0.0 - 0.3 mg/dl [facility] Unconjugated Bilirubin 0.5 0.1 - 1.1 mg/dl [facility] Specimen Performing Organization Address City/[facility] Phon e Number [facility] [address] [place] [address] SERVICES [facility] [address] [place] [address] (ABNORMAL) COMPREHENSIVE METABOLIC PANEL (12/02/2009 7:30 EDT) Pathologist Sig nature Potassium 4.4 3.5 - 5.0 mEq/L [facility] Sodium 140 136 - 145 mEq/L [facility] Chloride 105 96 - 110 mEq/L [facility] CO2 28 24 - 32 mEq/L [facility] Total Alkaline 76 38 - 126 U/L [facility] Phosphatase Bilirubin, Total <0.5 0.2 - 1.3 mg/dl [facility] AST 29 15 - 46 U/L [facility] ALT 21 21 - 72 U/L [facility] Albumin 3.9 3.4 - 4.9 g/dl [facility] Total Protein 6.2 (L) 6.5 - 8.3 g/dl [facility] Creatinine 0.71 0.7 - 1.5 mg/dl [facility] GFR, Calculated >60 ml/min/1.73m2 [facility] BUN 18 10 - 26 mg/dl [facility] Calcium 9.2 8.5 - 10.5 [facility] mg/dl Calculated Calcium 9.7 8.5 - 10.5 [facility] mg/dl Glucose, Serum 74 70 - 100 mg/dl [facility] Fasting? Yes [facility] Specimen Performing Organization Address City/[facility] Code Phon e Number [facility] [address] [place] [address] SERVICES [facility] [address] [place] [address] (ABNORMAL) HEMAGRAM AND DIFFERENTIAL (12/02/2009 7:30 EDT) Pathologist Sig nature WBC 4.73 4.0 - 10.4 K/cmm [facility] RBC 4.20 (L) 4.36 - 5.78 M/cmm [facility] Hemoglobin 13.4 (L) 13.8 - 17.3 gm/dl [facility] HCT 39.3 (L) 39.5 - 50.2 % [facility] MCV 94 81 - 95 fl [facility] MCH 31.9 27.6 - 33.0 pg [facility] MCHC 34.2 32.8 - 36.4 gm/dl [facility] PLT 170 141 - 320 K/cmm [facility] RDW-CV 13.5 11.8 - 14.1 % [facility] Neutrophils 56.2 45.5 - 79.7 % [facility] Lymphocytes 31.3 15.0 - 46.8 % [facility] Monocytes 8.2 1.8 - 12.0 % [facility] Eosinophils 3.8 0.6 - 6.9 % [facility] Basophils 0.5 0.2 - 1.4 % [facility] ABS Neutrophils 2.66 2.20 - 8.85 K/cmm [facility] ABS Lymphs 1.48 1.09 - 3.30 K/cmm [facility] ABS Monocytes 0.39 0.1 - 0.8 K/cmm [facility] ABS Eosinophils 0.18 0.03 - 0.61 K/cmm [facility] ABS Basophils 0.02 0.01 - 0.11 K/cmm [facility] Type of Diff: Automated [facility] Specimen Performing Organization Address City/State/ZIP Code Phon e Number [facility] [address] [place] [address] SERVICES [facility] [address] [place] [phone] documented in this encounter Visit Diagnoses Not on filedocumented in this encounter Care Teams Electrician Apprentice Relationship Specialty Start Date End Date Unknown, Provider, PCP - General 12/02/09 12/14/11 documented as of this encounter
--- OUTSIDE RECORDS SUMMARY | 2021-11-26 01:02 | XMS_ITS | Encounter Summary ---
:1960 Author Organization [facility] Address [address] [place] [address] Care Team Providers Name Role Phone Roman Bryan Primary Care Provider Encounter Details Date Type Department Care Team Description 06/09/2021 Lab Requisition [facility] Outr Resulting Lab, Pathology & Laboratory Provider [facility] [address] [place], [place] [phone] Social History Tobacco Use Types Packs/Day Years Used Date Never Assessed Sex Assigned at Date Recorded Not on file documented as of this encounter Plan of Treatment Not on filedocumented as of this encounter Procedures Procedure Name Priority Date/Time Associated Diagnosis Comme nts COVID-19 TEST [facility] Today 06/08/2021 16:23 LAB PCR EST COVID-19 TESTING Routine 06/08/2021 16:23 Results for this EST procedure are i n the results section. documented in this encounter Results COVID-19 TEST [facility] PCR (06/08/2021 16:23 EST) Specimen Swab Performing Organization Address City/State/ZIP Code Phon e Number [facility] [address] [place] [address] SERVICES COVID-19 TESTING (06/08/2021 16:23 EST) COVID-19 rt-PCR Negative Negative [facility] Result Comment: [facility] This test [...] tions, patient history, and epidemiological informatio n. Testing was performed using the rigo SARS-CoV-2 assay ([employer] on the Rigo 6800 System Performing Lab [address]igo [address] [facility] Lab [facility] SERVICES Specimen Swab Performing Organization Address City/State/ZIP Code Phon e Number [facility] [address] [place] [address] SERVICES documented in this encounter Visit Diagnoses Not on filedocumented in this encounter Care Teams Graduate Assistant Athletic Trainer Relationship Specialty Start Date End Date Roman Bryan DO PCP - General 02/20/19 [facility] [place] [address] [place] [phone] documented as of this encounter
--- OUTSIDE RECORDS SUMMARY | 2021-11-26 01:02 | XMS_ITS | Encounter Summary ---
:1960 Author Organization [facility] Address [address] [place] [address] Care Team Providers Name Role Phone Janel Tinoco MD Primary Care Provider Encounter Details Date Type Department Care Team Description 04/27/2015 Results Only [facility] Zafar, [address] [place] [address] [place], [place] [id number] (Wo rk) Social History Tobacco Use Types Packs/Day Years Used Date Never Assessed Sex Assigned at Date Recorded Not on file documented as of this encounter Plan of Treatment Not on filedocumented as of this encounter Procedures Procedure Name Priority Date/Time Associated Diagnosis Comme nts SURGICAL PATHOLOGY Routine 04/27/2015 10:05 Resul ts for this EST procedure are i n the results section. documented in this encounter Results SURGICAL PATHOLOGY (04/27/2015 10:05 EST) Pathology Report: SURGICAL PATHOLOGY REPORT [facility] Reports generated via electronic interface contain marina ginal data; LABORATORY however they are lacking the format of the original re port. SERVICES Caution should be taken when reading/interpreting unfo rmatted reports. Name: ? DIVYA BHAGAT ? Accession #: ? [id number] ? : ? 1960 (Age: 54) ??M ? Collect Date: ? 04/27/2015 ? Location: ? [facility] ? Receive Date: ? 015 ? Provider: EDMUNDO MUÑOZ MD Copy to: JANEL TINOCO MD ? Final Pathologic Diagnosis: A. COLON, ASCENDING, POLYP, BIOPSY: - ??Polypoid colonic mucosa with lymphoid aggregate. S ee comment. B. 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 ?? Comment: Part A: Deeper levels examined. Dr. Bird 04/29/2015 5:28 PM Document reviewed and electronically signed by: FARRAH GONZALEZ MD Report ??Date: 04/30/2015 09:17 By the signature above, the attending physician certif ies that he/she has personally conducted a gross and/or microscopic examin ation of the described specimens and rendered or confirmed the above diagnosi s. Specimen(s) Received: A. ??Ascending colon polyp B. ??Sigmoid polyp 18 cm Clinical History: Colorectal screening; rectal pain Gross Description: A. ?Received in formalin labelled with proper p atient identification (initials T, R) and ascending colon polyp is a singl e fragment of hernandez-pink tissue (0.3 x 0.3 x 0.2 cm). The specimen is submitted entirely in A1. B. ?Received in formalin labelled with proper p atient identification (initials T, R) and sigmoid polyp 18 cm is a f ragment of hernandez-brown polypoid tissue (0.7 x 0.7 x 0.5 cm). The surgical margin is inked blue. The specimen is bisected and submitted entirely in B1. 04/28/2015 11:33 AM End of Report Specimen Performing Organization Address City/State/ZIP Code Phon e Number [facility] [address] [place] [address] SERVICES documented in this encounter Visit Diagnoses Not on filedocumented in this encounter Care Teams Credit Products Officer Relationship Specialty Start Date End Date Janel Tinoco MD PCP - General 12/15/11 02/19/[address] [place] [address] [place] [address] documented as of this encounter
--- OUTSIDE RECORDS SUMMARY | 2021-11-26 01:02 | XMS_ITS | Encounter Summary ---
:1960 Author Organization [facility] Address [address] [place] [address] Care Team Providers Name Role Phone Unknown, Provider Primary Care Provider Encounter Details Date Type Department Care Team Description 12/07/2009 Results Only [facility] Unknown, Dominique ortega MD Laboratory Services - [facility] [address] [place] [address] Social History Tobacco Use Types Packs/Day Years Used Date Never Assessed Sex Assigned at Date Recorded Not on file documented as of this encounter Plan of Treatment Not on filedocumented as of this encounter Procedures Procedure Name Priority Date/Time Associated Diagnosis Comme nts VALPROIC ACID LEVEL Routine 12/07/2009 14:30 Resu lts for this EDT procedure are i n the results section. documented in this encounter Results VALPROIC ACID (12/07/2009 14:30 EDT) Pathologist Sig nature Valproic Acid 53.8 50.0 - 100.0 ug/ml [facility] Specimen Performing Organization Address City/State/ZIP Code Phon e Number [facility] [address] [place] [address] SERVICES [facility] [address] [place] [address] documented in this encounter Visit Diagnoses Not on filedocumented in this encounter Care Teams Assistant Principal Relationship Specialty Start Date End Date Unknown, Provider, PCP - General 12/02/09 12/14/11 documented as of this encounter
--- OUTSIDE RECORDS SUMMARY | 2021-11-26 01:02 | XMS_ITS | Encounter Summary ---
:1960 Author Organization [facility] Address [address] [place] [address] Care Team Providers Name Role Phone True Tinoco MD Primary Care Provider Encounter Details Date Type Department Care Team Description 02/18/2019 Results Only [facility] Edmundo Zafar, [address] [place] [address] [place], [place] [id number] (Wo rk) Social History Tobacco Use Types Packs/Day Years Used Date Never Assessed Sex Assigned at Date Recorded Not on file documented as of this encounter Plan of Treatment Not on filedocumented as of this encounter Procedures Procedure Name Priority Date/Time Associated Diagnosis Comme [facility] SURGICAL PATHOLOGY Routine 02/18/2019 17:17 Resul ts for this EDT procedure are i n the results section. documented in this encounter Results SURGICAL PATHOLOGY (02/18/2019 17:17 EDT) Pathology Report: SURGICAL PATHOLOGY REPORT [facility] Reports generated via electronic interface contain marina ginal data; LABORATORY however they are lacking the format of the original re port. SERVICES Caution should be taken when reading/interpreting unfo rmatted reports. Name: ? DIVYA BHAGAT ? Accession #: ? [id number] ? : ? 1960 (Age: 58) ??M ? Collect Date: ? 02/18/2019 ? Location: ? [facility] ? Receive Date: ? 02/19/20 19 ? Provider: EDMUNDO MUÑOZ MD Copy to: CHERYL HITCHCOCK DO ? Final Pathologic Diagnosis: A. COLON, ASCENDING, POLYPS, BIOPSY: - ??Fragments of tubular adenomas. Document reviewed and electronically signed by: FARRAH GONZALEZ MD Report ??Date: 02/21/2019 14:29 By the signature above, the attending physician certif ies that he/she has personally conducted a gross and/or microscopic examin ation of the described specimens and rendered or confirmed the above diagnosi s. Specimen(s) Received: Ascending colon polyps x2 Clinical History: Colon cancer screening, hx of polyps Gross Description: ? Received in formalin labelled with proper patient identification (initials T, R) and ascending colon p olyps x2 are five pink-hernandez tissues (0.2 x 0.1 x 0.1 cm to 0.3 x 0.2 x 0.2 cm). Entirely submitted in block s 1-2. LEANNA Barksdale (ASCP) 02/19/2019 8:29 AM End of Report Specimen Performing Organization Address City/State/ZIP Code Phon e Number [facility] [address] [place] [address] SERVICES documented in this encounter Visit Diagnoses Not on filedocumented in this encounter Care Teams Deck Steward Relationship Specialty Start Date End Date True Tinoco MD PCP - General 12/15/11 02/19/[address] [place] [address] [address] [place], [place] [id number] documented as of this encounter
--- OUTSIDE RECORDS SUMMARY | 2021-11-26 01:02 | XMS_ITS | Encounter Summary ---
:[address] [facility] Address [address] [place] [address] Care Team Providers Name Role Phone True Tinoco MD Primary Care Provider Encounter Details Date Type Department Care Team Description 04/27/2015 Hospital Encounter [facility] Karen Unknown, Provider, [facility] [address] [phone] [place] [address] (Work) [phone] Social History Tobacco Use Types Packs/Day Years Used Date Never Assessed Sex Assigned at Date Recorded Not on file documented as of this encounter Discharge Disposition Disposition Code Departure Means Destination Home or Self Prison documented in this encounter Plan of Treatment Not on filedocumented as of this encounter Visit Diagnoses Not on filedocumented in this encounter Care Teams Compound Coating Machine Offbearer Relationship Specialty Start Date End Date Treu Tinoco MD PCP - General 12/15/11 02/19/[address] [place] [address] [place] [address] documented as of this encounter
--- NOTE | 2021-11-26 13:37 | DI.RAD_ITS ---
Exam(s) XR CERVICAL SPINE COMP 4-5V EXAM: XR CERVICAL SPINE COMP 4-5V CLINICAL HISTORY: Chronic neck pain,M54.2. TECHNIQUE: 2D digital imaging was performed. Five images were obtained. AP, odontoid, lateral and bi lateral oblique images were obtained. COMPARISON: No exams were available for comparison FINDINGS: The odontoid is intact. The lateral masses are well aligned. There is normal alignment of the cervi zeina spine. There is disc space narrowing at C5-C6 and C6-C7. Small endplate osteophytes are present in the lower cervical spine. No acute fracture or subluxation is present. Moderate left neural bhakti inal stenosis is seen at C5-6 and C6-C7. The cervical thoracic junction is well maintained. The prev ertebral soft tissues are unremarkable. Lung apices are clear. IMPRESSION: Moderate cervical spondylosis. DATA REPOSITORY: RADIATION DOSE DELIVERED:
== END ==
PROVIDERS: PCP Family Medicine; Visit Provider Family Medicine
DX: M47.812 Spondylosis without myelopathy or radiculopathy, cervical region (principal)
CPT/HCPCS: 72050

== ENCOUNTER → 2021-11-30 11:02 | Outpatient (BNVA) | payer OTHER, SELFPAY | PROVIDERS: PCP Family Medicine; Referring Provider Family Medicine; Visit Provider Nurse Practitioner Adult Health | DX: F31.9 Bipolar disorder, unspecified (principal); Z72.0 Tobacco use; G89.29 Other chronic pain; R51.9 Headache, unspecified | CPT/HCPCS: 99213; 99214 ==

== ENCOUNTER 2021-12-28 01:49 | Outpatient (CLI) | payer OTHER, SELFPAY ==
[2021-12-28 14:47] LABS: Abs Immature Grans 0.02 10^3/uL (0.0-0.06); Absolute Basophil Count 0.03 10^3/uL (0.0-0.2); Absolute Eosinophil Count 0.09 10^3/uL (0.0-0.7); Absolute Lymphocyte Count 1.86 10^3/uL (1.2-3.4); Absolute Monocyte Count 0.73 10^3/uL (0.1-0.8); Absolute Neutrophil Count 4.25 10^3/uL (1.2-6.7); Basophils % 0.4; Eosinophils % 1.3; HGB 14.8 g/dL (13.5-17.5); Immature Grans % 0.3; Lymphocytes % 26.6; MCH 29.8 pg (27.0-33.0); MCHC 34.4 % (32.0-36.0); MCV 87 fL (80-95); MPV 10.9 fL (8.0-11.0); Monocytes % 10.5; Neutrophils % 60.9; Platelet Count 198 10^3/uL (130-400); RBC 4.97 10^6/uL (4.36-5.78); RDW 12.7 % (11.8-14.1); WBC 6.98 10^3/uL (4.4-10.8)
[2021-12-29 10:34] LABS: Lyme Ab w Rflx to Lyme Confirm Negative (Negative)
[2021-12-30 23:51] LABS: Anaplasma phagocytophilum Negative (Negative); B. miyamotoi PCR Negative (Negative); Babesia divergens/MO-1 Negative (Negative); Babesia duncani Negative (Negative); Babesia microti Negative (Negative); Ehrlichia chaffeensis Negative (Negative); Ehrlichia ewingii/canis Negative (Negative); Ehrlichia muris eauclairensis Negative (Negative)
== END 2021-12-28 01:50 | disposition home or self-care (01) ==
LOC: LBO 01:49
PROVIDERS: PCP Family Medicine; Visit Provider Family Medicine
DX: S70.269A Insect bite (nonvenomous), unspecified hip, initial encounter (principal); W57.XXXA Bitten or stung by nonvenomous insect and other nonvenomous arthropods, initial encounter; K63.5 Polyp of colon
CPT/HCPCS: 36415; 87798; 85025; 86618

== ENCOUNTER → 2022-01-11 12:35 | Outpatient (BNVA) | payer OTHER, SELFPAY | PROVIDERS: PCP Family Medicine; Referring Provider Family Medicine; Visit Provider Nurse Practitioner Adult Health | DX: F31.9 Bipolar disorder, unspecified (principal); Z72.0 Tobacco use; G89.29 Other chronic pain; R51.9 Headache, unspecified | CPT/HCPCS: 99213; 99214 ==

== ENCOUNTER 2022-01-14 15:28 | Outpatient (REF) | payer OTHER, SELFPAY ==
[2022-01-16 17:27] LABS: Chlamydia Result Negative (Negative); GC Result Negative (Negative)
== END 2022-01-14 15:29 | disposition home or self-care (01) ==
LOC: LBN 15:28
PROVIDERS: PCP Family Medicine; Visit Provider Family Medicine
DX: N34.2 Other urethritis (principal)
CPT/HCPCS: 87491; 87591

== ENCOUNTER → 2022-03-14 13:29 | Outpatient (BNVA) | payer OTHER, SELFPAY | PROVIDERS: PCP Family Medicine; Referring Provider Family Medicine; Visit Provider Nurse Practitioner Adult Health | DX: F31.9 Bipolar disorder, unspecified (principal); Z72.0 Tobacco use; G89.29 Other chronic pain; Z87.820 Personal history of traumatic brain injury; G43.009 Migraine without aura, not intractable, without status migrainosus | CPT/HCPCS: 99213 ==

== ENCOUNTER 2022-03-17 13:18 | Emergency (ER) | payer OTHER, MEDICAID, SELFPAY ==
[2022-03-17 14:02] VITALS: BP 115/75; PULSE 74; RESP 16; TEMP 36.8; O2SAT 99
--- NOTE | 2022-03-17 14:33 | NUR.NOTE ---
Nursing Note: Patient stated to Maria De Jesus Ba that he was leaving and would return tomorrow @ [id number]
== END 2022-03-17 14:33 | disposition left before discharge ==
PROVIDERS: PCP Family Medicine
DX: Z53.21 Procedure and treatment not carried out due to patient leaving prior to being seen by health care provider (principal)

== ENCOUNTER 2022-03-18 12:11 | Emergency (ER) | payer OTHER, MEDICAID, SELFPAY ==
[2022-03-18 12:16] VITALS: BP 116/87; PULSE 87; RESP 20; TEMP 36.8; O2SAT 97
[2022-03-18 13:10] LABS: Abs Immature Grans 0.08 10^3/uL (0.0-0.06); Absolute Basophil Count 0.05 10^3/uL (0.0-0.2); Absolute Eosinophil Count 0.06 10^3/uL (0.0-0.7); Absolute Lymphocyte Count 2.26 10^3/uL (1.2-3.4); Absolute Monocyte Count 1.06 10^3/uL (0.1-0.8); Absolute Neutrophil Count 7.79 10^3/uL (1.2-6.7); Basophils % 0.4; Eosinophils % 0.5; HCT 43.9 % (40.0-50.0); HGB 14.9 g/dL (13.5-17.5); Immature Grans % 0.7; MCH 30.2 pg (27.0-33.0); MCHC 33.9 % (32.0-36.0); MCV 89 fL (80-95); MPV 10.7 fL (8.0-11.0); Monocytes % 9.4; Platelet Count 193 10^3/uL (130-400); RBC 4.94 10^6/uL (4.36-5.78); RDW 13.4 % (11.8-14.1); WBC 11.29 10^3/uL (4.4-10.8)
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
[2022-03-18 13:30] LABS: ALT 45 U/L (16-63); AST 16 U/L (15-37); Albumin 3.8 g/dL (3.4-5.0); Alkaline Phosphatase 56 U/L (46-116); BUN 17 mg/dL (7-18); Bilirubin, Total 0.4 mg/dL (0.2-1.0); CREATININE 1.1 mg/dL (0.70-1.30); Calcium 9.4 mg/dL (8.5-10.1); Chloride 107 mmol/L (98-107); Estimated GFR 76.37 (mL/min/1.73m2); Glucose 110 mg/dL (74-106); Potassium 3.8 mmol/L (3.5-5.1); Sodium 143 mmol/L (136-145); Total Protein 7.2 g/dL (6.4-8.2)
[2022-03-18] MEDS: ACETAMINOPHEN 1,000 MG/100 ML BTL 400 MG IVPB (13:36)
[2022-03-18 13:43] LABS: Bilirubin Negative (Negative); Blood Negative (Negative); Clarity Clear (Clear); Glucose Negative (Negative); Ketones Negative (Negative); Leukocyte Esterase Negative (Negative); Nitrite Negative (Negative); Specific Gravity 1.025 (1.005-1.025); Urobilinogen 0.2 EU/dL (Up TO 0.2)
--- NOTE | 2022-03-18 13:57 | NUR.NOTE ---
patient referred to General surgery for Rectal pain. 1 week or marco a p/ N. Shawna. MEMOB
[2022-03-18 14:07] VITALS: BP 114/77; PULSE 65; TEMP 36.6; O2SAT 98
[2022-03-18 14:13] VITALS: BP 114/77; PULSE 65; TEMP 36.6; O2SAT 98
== END 2022-03-18 14:13 | disposition home or self-care (01) ==
PROVIDERS: Emergency Provider Nurse Practitioner Family; PCP Family Medicine
DX: K62.89 Other specified diseases of anus and rectum (principal)
CPT/HCPCS: 36415; 80053; 86850; 86900; 86901; 96365; 99284; 81003; 85025; J0131

== ENCOUNTER → 2022-04-13 10:40 | Outpatient (BNVA) | payer OTHER, MEDICAID, SELFPAY | PROVIDERS: PCP Family Medicine; Referring Provider Family Medicine; Visit Provider Surgery | DX: M54.50 Low back pain, unspecified (principal); G89.29 Other chronic pain; K62.89 Other specified diseases of anus and rectum | CPT/HCPCS: 99213 ==

== ENCOUNTER 2022-05-06 07:12 | Day surgery (SDC) | payer OTHER, MEDICAID, SELFPAY ==
--- NOTE | 2022-05-05 20:18 | PDOC.DSDIS_ITS ---
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 Provider: Avtar Clement Primary Care Provider: Roman Bryan Home Meds and New Rx's Prescriptions: Continued polyethylene glycol 3350 17 gram/dose powder 238 g PO ONCE Qty: 238 0RF Rx Instructions: take per colonoscopy instructions bisacodyl [Dulcolax (bisacodyl)] 5 mg tablet,delayed release (DR/EC) 5 mg PO ONCE Qty: 4 0RF Rx Instructions: take per colonoscopy instructions lidocaine HCl 2 % jelly in applicator 1 applic mucous membrane BID PRN (Reason: pain) Qty: 125 0RF divalproex [Depakote] 500 mg tablet,delayed release (DR/EC) 500 mg PO HS Label Comments: rx'd at [facility]--states he's only taking once daily- topiramate [Topamax] 100 mg tablet 100 mg PO QHS Qty: 30 3RF Discharge Instructions Instructions: Rectal Pain (ED) Additional Instructions: I will order a CAT scan of your abdomen and pelvis that can be performed at your convenience to see if there is any pelvic abnormality that may explain your discomfort. Activity:: Activity as Tolerated Shower/Bathe:: 24 hours Diet:: As Tolerated Discharge Orders Discharge Orders: Discharge Order (Routine); Ordered 05/05/22 Ordered By: Avtar Clement DS: Diagnosis Discharge Diagnosis (1) Rectal pain, chronic: Status: Acute Asessment and Plan: I do not see any abnormalities that would explain any kind of chronic anal or rectal pain.
--- NOTE | 2022-05-05 20:21 | W.PM.OP ---
Date of service: 05/06/22 Time of Service: 09:47 Operative Note Operative Note DATE OF PROCEDURE: 05/06/22 PRE-OP DIAGNOSIS: anorectal pain POST-OP DIAGNOSIS: same PROCEDURE: Anorectal exam under anesthesia SURGEON: Avtar Clement ANESTHESIA TYPE: MAC Refer to Anesthesia Record ESTIMATED BLOOD LOSS: 0 COMPLICATIONS: None Patient was transported to: same day Patient's condition: stable Indications: Hair is a 62-year-old male with chronic anal rectal pain Procedure Description: After the institution of monitored anesthetic care, we assisted the patient into lithotomy positioning. The perineum and anus were prepped and draped in the usual fashion. External examination of the perineum and anus were totally normal. I did not see any evidence of external hemorrhoids. There were no abscesses. There is no evidence of anal fistula. Next, I performed a digital anorectal exam. The exam felt normal. He had appropriate sphincter tone based on his level of sedation. Next, using a illuminated anoscope, I performed a visual exam of the anus and rectum. The anal verge was normal-appearing. The dentate line was normal. There were no fissures. There were no internal hemorrhoids. Next, using a series of rigid anoscopes in the [place] retractor, I performed sequential examination of all anal and distal rectal quadrants. All appeared normal. The mucosa of the distal rectum was pink and healthy appearing. There were no ulcers. Next, I performed rigid proctoscopy up to 17 cm from the anal verge. I did not see any masses. I did not see any ulceration or signs of inflammation of the rectum. Finally, I used a piece of lidocaine soaked gauze to help anesthetize the area for the patient's discomfort as he woke up.
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
[2022-05-06 07:32] VITALS: BP 93/77; PULSE 60; RESP 16; TEMP 36.7; O2SAT 98
[2022-05-06] MEDS: Lactated Ringers 1,000 ML 80 ML IV (08:45)
[2022-05-06 09:07] VITALS: BMI 25.2
[2022-05-06 09:40] VITALS: BP 95/70; PULSE 52; RESP 16; TEMP 36.3; O2SAT 98
[2022-05-06] MEDS: Lidocaine 2% Multi-Dose 50 ML VIAL (09:43)
[2022-05-06 10:18] VITALS: BP 103/71; PULSE 50; RESP 16; TEMP 36.4; O2SAT 100
--- NOTE | 2022-05-06 19:06 | W.ANESPOSTOP ---
Postoperative Evaluation Date, Time and Location Date Performed: 05/06/22 Time Performed: 19:06 Patient Location: Day Surgery Unit Vital Signs Most Recent Imported Vital Signs: Most Recent Vital Signs Temp Pulse Resp BP Pulse Ox 36.4 C L 50 L 16 103/71 100 05/06/22 10:18 05/06/22 10:18 05/06/22 10:18 05/06/22 10:18 05/06/22 10:18 Pain Score Most Recent Pain Score: Most Recent Pain Score Pain Level 0 05/06/22 09:40 Assessment Mental Status: Awake (Alert & Oriented to Patient Baseline) Airway and Respiratory Function: Patent airway with normal (patient baseline) respiratory exam Cardiovascular Function: Hemodynamically Stable Hydration Status: Adequately Hydrated Nausea & Vomiting: No Nausea or Vomiting Pain: Pt. Denies Any Pain Peripheral Nerve Block: Patient did not receive a nerve block Postoperative Comments:: Patient seen earlier today and doing well.
== END 2022-05-06 10:43 | disposition home or self-care (01) ==
PROVIDERS: PCP Family Medicine; Visit Provider Surgery
PROC: (CPT 46600; principal; 2022-05-06 08:30)
DX: K62.89 Other specified diseases of anus and rectum (principal)
CPT/HCPCS: 46600; J2250

== ENCOUNTER 2022-05-18 13:21 | Emergency (ER) | payer OTHER, MEDICAID, SELFPAY ==
[2022-05-18 13:24] VITALS: BP 110/74; PULSE 79; RESP 18; TEMP 36.8; O2SAT 100
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
[2022-05-18 15:33] LABS: Abs Immature Grans 0.01 10^3/uL (0.0-0.06); Absolute Basophil Count 0.05 10^3/uL (0.0-0.2); Absolute Eosinophil Count 0.11 10^3/uL (0.0-0.7); Absolute Lymphocyte Count 1.96 10^3/uL (1.2-3.4); Absolute Monocyte Count 0.56 10^3/uL (0.1-0.8); Basophils % 0.8; Eosinophils % 1.8; HCT 42.8 % (40.0-50.0); HGB 14.6 g/dL (13.5-17.5); Immature Grans % 0.2; Lymphocytes % 32.2; MCH 30.5 pg (27.0-33.0); MCHC 34.1 % (32.0-36.0); MCV 90 fL (80-95); MPV 11.1 fL (8.0-11.0); Monocytes % 9.2; Neutrophils % 55.8; Platelet Count 206 10^3/uL (130-400); RBC 4.78 10^6/uL (4.36-5.78); RDW 12.7 % (11.8-14.1); RDW-SD 41.9 fL; WBC 6.09 10^3/uL (4.4-10.8)
[2022-05-18 15:35] LABS: Bilirubin Negative (Negative); Blood Negative (Negative); Clarity Clear (Clear); Glucose Negative (Negative); Ketones Negative (Negative); Leukocyte Esterase Negative (Negative); Nitrite Negative (Negative); Specific Gravity 1.015 (1.005-1.025); Urobilinogen 0.2 EU/dL (Up TO 0.2)
[2022-05-18 15:46] LABS: ALT 27 U/L (16-63); AST 20 U/L (15-37); Alkaline Phosphatase 67 U/L (46-116); Anion Gap 7.8 mmol/L (3-11); BUN 9 mg/dL (7-18); Bilirubin, Total 0.4 mg/dL (0.2-1.0); CO2 25.2 mmol/L (21.0-32.0); CREATININE 0.9 mg/dL (0.70-1.30); Calcium 8.9 mg/dL (8.5-10.1); Chloride 107 mmol/L (98-107); Estimated GFR 96.57 (mL/min/1.73m2); Glucose 95 mg/dL (74-106); Potassium 3.7 mmol/L (3.5-5.1); Sodium 140 mmol/L (136-145); Total Protein 7.5 g/dL (6.4-8.2)
[2022-05-18 15:50] LABS: *AMPHETAMINES SCREEN URINE Negative (Negative); *BARBITURATES SCREEN URINE Negative (Negative); *BENZODIAZEPINES SCREEN URINE Negative (Negative); Cannabinoids THC Positive (Negative); Cocaine Screen,Urine Negative (Negative); METHADONE URINE SCREEN Negative (Negative); OPIATES URINE SCREEN Negative (Negative)
[2022-05-18 15:53] LABS: Tricyclic Antidepressants Negative (Negative)
--- NOTE | 2022-05-18 16:52 | W.EDPROG ---
Date of service: 05/18/22 Time of Service: 16:52 Medical Decision Making Patient elects to leave prior to finishing work-up. He was discharged AGAINST MEDICAL ADVICE. Sign Out Sign Out Data: Sign Out Comment: followup CT abd/pel and labs, reassess patient for disposition Last updated by Endy Oliva MD at 05/18/22 15:48 Discharge Plan Disposition Patient Disposition: Against Medical Advice Condition: Improving Discharge Details Chief Complaint: Male Reproductive Problem Clinical Impression: Left against medical advice Primary Care Provider: Roman Bryan ED Provider: Romario Taylor Home Meds and New Rx's Prescriptions: No Action bisacodyl [Dulcolax (bisacodyl)] 5 mg tablet,delayed release (DR/EC) 5 mg PO ONCE Qty: 4 0RF Rx Instructions: take per colonoscopy instructions divalproex [Depakote] 500 mg tablet,delayed release (DR/EC) 500 mg PO HS Label Comments: rx'd at [facility]--states he's only taking once daily- topiramate [Topamax] 100 mg tablet 100 mg PO QHS Qty: 30 3RF Discharge Instructions Additional Instructions: You have elected to leave prior to completion of your work-up. Return at anytime for reevaluation.
== END 2022-05-18 17:00 | disposition left against medical advice (07) ==
PROVIDERS: Student in an Organized Health Care Education/Training Program; Emergency Provider Emergency Medicine; PCP Family Medicine
DX: N48.89 Other specified disorders of penis (principal); Z53.29 Procedure and treatment not carried out because of patient's decision for other reasons; Z79.899 Other long term (current) drug therapy
CPT/HCPCS: 36415; 80053; 80307; 87491; 87591; 99283; 81003; 85025; 99282

== ENCOUNTER 2022-06-09 02:25 | Outpatient (CLI) | payer OTHER, SELFPAY ==
[2022-06-09 12:40] LABS: VALPROIC ACID 24.4 ug/mL
[2022-06-09 19:25] LABS: PSA, Screening 2.4 ng/mL (<=4.5)
== END 2022-06-09 02:26 | disposition home or self-care (01) ==
PROVIDERS: Psychiatry & Neurology Psychiatry; PCP Family Medicine; Visit Provider Family Medicine
DX: F31.32 Bipolar disorder, current episode depressed, moderate (principal); Z51.81 Encounter for therapeutic drug level monitoring; Z79.899 Other long term (current) drug therapy; N40.1 Benign prostatic hyperplasia with lower urinary tract symptoms; N13.8 Other obstructive and reflux uropathy; Z12.5 Encounter for screening for malignant neoplasm of prostate
CPT/HCPCS: 36415; 51798; 84153; 99214; 80164

== ENCOUNTER 2022-06-16 02:10 | Outpatient (CLI) | payer OTHER, SELFPAY ==
--- NOTE | 2022-06-16 08:15 | DI.CTLCSR_ITS ---
Exam(s) CT CHEST LUNG CANCER SCREEN EXAM: CT CHEST LUNG CANCER SCREEN CLINICAL HISTORY: Screening for lung cancer,CURRENT SMOKER, F17.210 TECHNIQUE: Imaging Protocol: Axial computed tomography images with coronal and sagittal reformatted images were created and reviewed. Low dose screening protocol. COMPARISON: CT CHEST ABD PELVIS WITH CONTRAST from 11/16/2016 CR XR CHEST 2V PA LATERAL from 11/26/2018 FINDINGS: Tracheobronchial tree: No bronchiectasis or mucus plugging.. Mediastinum and Annabelle: No dominant adenopathy or fluid collection. Pulmonary parenchyma: No consolidation or dominant measurable mass. Minimal emphysematous changes. Lung Nodules: None. Pleura: No effusion. No pneumothorax. Heart: The heart is not dilated. No coronary artery calcifications are seen. Aorta: Thoracic aorta non-dilated. Upper abdomen: Renal cysts, left greater than right. Bones: Unremarkable for age. Soft Tissues: Unremarkable. IMPRESSION: No suspicious pulmonary nodules. Lung RADS Cat 1 - Negative: No nodules and definitely benign nodules Lung-RADS 1.0 CATEGORIES: Category 0 - Prior chest CT exam(s) being located for comparison. Category 1 - Annual screening in 12 months. No nodules or definitely benign nodules. Category 2 - Annual screening in 12 months. Benign appearance. Nodules with low likelihood of becomin g active cancer. Category 3 - 6-month follow-up. Probably benign. Short-term follow-up suggested. Nodules with low lik elihood of becoming active cancer. Category 4A - 3-month follow-up and CT/PET if >8 mm in size. Suspicious finding. Findings which requi re additional testing. Category 4B - Findings which require additional testing and tissue sampling. Category 4X - Category 3 or 4 nodules with additional features or imaging findings that increases the suspicion of malignancy. Modifier S- Potentially clinically significant findings (non lung cancer) RADIATION DOSE DELIVERED: 82.44mGy.cm Total DLP DATA REPOSITORY: All CT scans at this facility are submitted to the National Radiology Data Registry (NRDR) Dose Index Registry (DIR) with the [employer] (ACR). RADIATION OPTIMIZATION: All CT scans at this facility use at least one of these dose optimization te chniques: automated exposure control; mA and/or kV adjustment per patient size (includes targeted exa ms where dose is matched to clinical indication); or iterative reconstruction.
== END 2022-06-16 02:30 ==
PROVIDERS: PCP Family Medicine; Visit Provider Family Medicine
DX: F17.210 Nicotine dependence, cigarettes, uncomplicated (principal); Z12.2 Encounter for screening for malignant neoplasm of respiratory organs
CPT/HCPCS: 71271

== ENCOUNTER 2022-06-16 02:10 | Outpatient (CLI) | payer OTHER, SELFPAY ==
[2022-06-16] MEDS: Barium Sulfate 2% W/V-Berry Smoothie 450 ML BTL 900 ML PO (13:33)
[2022-06-16] MEDS: Normal Saline - Diluent 50 ML VIAL IJ (16:41)
[2022-06-16] MEDS: Omnipaque 350 MG/ML 100 ML BTL IJ (16:44)
[2022-06-16] MEDS: Normal Saline Flush 10 ML SYR IVP (16:45)
--- NOTE | 2022-06-16 16:45 | DI.CT_ITS ---
Exam(s) CT ABDOMEN PELVIS W EXAM: CT ABDOMEN PELVIS W CLINICAL HISTORY: Chronic anorectal pain with normal visual exam,K62.89,G89.29. TECHNIQUE: Imaging Protocol: Axial computed tomography images with coronal and sagittal reformatted images were created and reviewed CONTRAST MATERIAL: Intravenous: Omnipaque 350 Contrast volume:100 ml Oral: yes / no COMPARISON: CT CHEST ABD PELVIS WITH CONTRAST from 11/16/2016 FINDINGS: ABDOMEN: Lung Bases: Normal where visualized. Liver: Normal density. No measurable mass. Gallbladder and biliary tract: No radiodense calculus or dilation. Pancreas: Normal density, no abnormal calcifications or inflammatory process. Spleen: Normal. Kidneys: Normal size, contour and axis. No radiodense stones or obstructive uropathy. Multiple small bilateral renal cysts Adrenal glands: No masses seen. Abdominal Aorta: Abdominal portion non-dilated. PELVIS: Bladder: Nearly empty. Bowel: No obstruction or bowel wall thickening. Appendix normal.Oral contrast opacifies the distal sm all bowel and colon. Diverticulosis is noted the lower descending and sigmoid. No evidence of diver ticulitis. Rectum is unremarkable. No abnormalities seen in the perirectal fat. Perianal region ap pears normal. Peritoneal cavity: No ascites, collection or mesenteric inflammatory response. Bones: Degenerative changes in the spine greatest at L5-S1. Hardware in right proximal femur. Reproductive organs: Prostate within normal limits in size. Few prostate calcifications are seen. Lymph nodes: Unremarkable. Soft tissues: Small amount of fat extending into the left inguinal canal. Impression: Unremarkable CT scan of the abdomen and pelvis. RADIATION DOSE DELIVERED: 774.1mGy.cm Total DLP DATA REPOSITORY: All CT scans at this facility are submitted to the National Radiology Data Registry (NRDR) Dose Index Registry (DIR) with the [employer] (ACR). RADIATION OPTIMIZATION: All CT scans at this facility use at least one of these dose optimization te chniques: automated exposure control; mA and/or kV adjustment per patient size (includes targeted exa ms where dose is matched to clinical indication); or iterative reconstruction.
== END 2022-06-16 02:30 ==
PROVIDERS: PCP Family Medicine; Visit Provider Surgery
DX: G89.29 Other chronic pain (principal); K62.89 Other specified diseases of anus and rectum
CPT/HCPCS: 74177; J3490

== ENCOUNTER → 2022-06-20 13:52 | Outpatient (BNVA) | payer OTHER, SELFPAY | PROVIDERS: PCP Family Medicine; Referring Provider Family Medicine; Visit Provider Nurse Practitioner Gerontology | DX: R10.2 Pelvic and perineal pain (principal) | CPT/HCPCS: 99213 ==

== ENCOUNTER → 2022-06-22 10:05 | Outpatient (BNVA) | payer OTHER, SELFPAY | PROVIDERS: PCP Family Medicine; Referring Provider Family Medicine; Visit Provider Nurse Practitioner Gerontology | DX: R10.2 Pelvic and perineal pain (principal) | CPT/HCPCS: 99442 ==

== ENCOUNTER → 2022-07-20 12:19 | Outpatient (BNVA) | payer OTHER, SELFPAY | PROVIDERS: PCP Family Medicine; Referring Provider Family Medicine; Visit Provider Nurse Practitioner Adult Health | DX: G43.009 Migraine without aura, not intractable, without status migrainosus (principal); F31.9 Bipolar disorder, unspecified; Z72.0 Tobacco use; Z87.820 Personal history of traumatic brain injury; G89.29 Other chronic pain | CPT/HCPCS: 99213; 99214 ==

== ENCOUNTER → 2022-08-31 12:49 | Outpatient (BNVA) | payer OTHER, SELFPAY | PROVIDERS: PCP Family Medicine; Referring Provider Family Medicine; Visit Provider Nurse Practitioner Adult Health | DX: G43.009 Migraine without aura, not intractable, without status migrainosus (principal); F31.9 Bipolar disorder, unspecified; Z72.0 Tobacco use; Z87.820 Personal history of traumatic brain injury; G89.29 Other chronic pain | CPT/HCPCS: 99213 ==

== ENCOUNTER 2022-09-15 01:15 | Outpatient (CLI) | payer OTHER, SELFPAY ==
--- NOTE | 2022-09-15 15:19 | DI.RAD_ITS ---
Exam(s) XR LUMBAR SPINE COMPLETE EXAM: XR LUMBAR SPINE COMPLETE CLINICAL HISTORY: Low back pain, worse on the R,m54.50. TECHNIQUE: 2D digital imaging was performed of the lumbar spine. Six images were obtained. AP, lat eral, right oblique, left oblique and L5-S1 spot views were obtained. COMPARISON: CR LUMBAR SPINE AP, LAT from 08/05/2010 FINDINGS: BONES: No fracture or destructive lesion. There endplate osteophytes seen at L3-4, L4-5 and L5-S1. De generative changes of the facets are seen at L5-S1. DISKS: There is mild disc space narrowing at L5-S1. ALIGNMENT: Lumbar spinal alignment is within normal limits. No spondylolysis or spondylolisthesis. SOFT TISSUE: Normal. IMPRESSION: Degenerative changes in the lumbar spine. DATA REPOSITORY: RADIATION DOSE DELIVERED:
== END 2022-09-15 01:35 ==
LOC: DI 01:15
PROVIDERS: PCP Family Medicine; Visit Provider Family Medicine
DX: M54.50 Low back pain, unspecified (principal)
CPT/HCPCS: 72110

== ENCOUNTER → 2022-10-05 10:05 | Outpatient (BNVA) | payer OTHER, SELFPAY | PROVIDERS: PCP Family Medicine; Referring Provider Family Medicine; Visit Provider Nurse Practitioner Gerontology | DX: R10.2 Pelvic and perineal pain (principal) | CPT/HCPCS: 99213 ==

== ENCOUNTER → 2023-03-29 09:41 | Outpatient (BNVA) | payer OTHER, MEDICAID, MEDICARE, SELFPAY | PROVIDERS: PCP Family Medicine; Referring Provider Family Medicine; Visit Provider Nurse Practitioner Gerontology | DX: R10.2 Pelvic and perineal pain (principal) | CPT/HCPCS: 99213 ==

== ENCOUNTER → 2023-09-27 09:18 | Outpatient (BNVA) | payer OTHER, MEDICAID, MEDICARE, SELFPAY | PROVIDERS: PCP Family Medicine; Referring Provider Family Medicine; Visit Provider Nurse Practitioner Gerontology | DX: R10.2 Pelvic and perineal pain (principal) | CPT/HCPCS: 99213 ==

== ENCOUNTER 2024-07-01 22:56 | Emergency (ER) | payer MEDICARE, MEDICAID, SELFPAY ==
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
[2024-07-01 22:57] VITALS: BP 141/89; PULSE 88; RESP 16; TEMP 36.7; O2SAT 97
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
[2024-07-01] MEDS: Acetaminophen 325 MG TAB 650 MG PO (23:49)
[2024-07-01] MEDS: OLANZapine ODT 5 MG TAB PO (23:50)
[2024-07-02 00:12] LABS: *AMPHETAMINES SCREEN URINE Negative (Negative); *BARBITURATES SCREEN URINE Negative (Negative); *BENZODIAZEPINES SCREEN URINE Negative (Negative); Cannabinoids THC Positive (Negative); Cocaine Screen,Urine Positive (Negative); METHADONE URINE SCREEN Negative (Negative); OPIATES URINE SCREEN Negative (Negative)
[2024-07-02 00:17] LABS: Tricyclic Antidepressants Negative (Negative)
[2024-07-02 00:33] LABS: Abs Immature Grans 0.02 10^3/uL (0.0-0.06); Absolute Basophil Count 0.03 10^3/uL (0.0-0.2); Absolute Eosinophil Count 0.16 10^3/uL (0.0-0.7); Absolute Lymphocyte Count 2.47 10^3/uL (1.2-3.4); Absolute Monocyte Count 0.68 10^3/uL (0.1-0.8); Absolute Neutrophil Count 3.55 10^3/uL (1.2-6.7); Basophils % 0.4 %; Eosinophils % 2.3 %; HCT 36.5 % (40.0-50.0); HGB 12.2 g/dL (13.5-17.5); Immature Grans % 0.3 %; Lymphocytes % 35.7 %; MCHC 33.4 % (32.0-36.0); MCV 87 fL (80-95); MPV 9.1 fL (8.0-11.0); Monocytes % 9.8 %; Neutrophils % 51.5 %; Platelet Count 287 10^3/uL (130-400); RDW-SD 44.7 fL; WBC 6.91 10^3/uL (4.4-10.8)
[2024-07-02 00:54] LABS: ALT 29 U/L (16-63); AST 24 U/L (15-37); Albumin 2.9 g/dL (3.4-5.0); Alkaline Phosphatase 106 U/L (46-116); Anion Gap 6.9 mmol/L (3-11); BUN 15 mg/dL (7-18); Bilirubin, Total 0.39 mg/dL (0.2-1.0); CO2 27.1 mmol/L (21.0-32.0); CREATININE 0.9 mg/dL (0.70-1.30); Chloride 104 mmol/L (98-107); ETHANOL BLOOD 26.4 mg/dL (<10); Estimated GFR 95.37 (mL/min/1.73m2); Glucose 108 mg/dL (74-106); Magnesium 1.8 mg/dL (1.8-2.4); Potassium 3.9 mmol/L (3.5-5.1); Sodium 138 mmol/L (136-145); Total Protein 7.1 g/dL (6.4-8.2)
--- NOTE | 2024-07-02 07:52 | W.EDPROG ---
Date of service: 07/02/24 Time of Service: 07:53 Medical Decision Making Care assumed from off going provider. Patient is a 64-year-old gentleman with paranoid delusions currently pending voluntary inpatient psychiatric placement. Will be reassessed by mental health services this morning. Patient woke up this morning and had no signs of alcohol intoxication and withdrawal. He initially said that he was ready to go home, but when I had a conversation with him he mentioned that he does not have suicidal ideation and he only wants to kill the people that are coming after him. 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 He states that he would like to go to [facility] to have a few days to recuperate. He was evaluated by mental health services and agreed for voluntary placement, but then shortly after became agitated that he was not immediately going to [facility] and stated that he then wanted to go home. he stated that he needed to go home in order to kill the people better at his house. Given his persistent fixed delusion and potential homicidal ideations though it is unclear if anyone actually lives in his home, it seems that an EE might be necessary. Mental health services has returned for reevaluation. An order for psych consult has been placed. As needed medications have also been ordered. Quality:[facility] Health Related Social Needs: No Data to Display Discharge Plan Discharge Details Chief Complaint: PsychEval Clinical Impression: Homicidal ideation Primary Care Provider: Roman Bryan ED Provider: Garo Martinez Home Meds and New Rx's Prescriptions: No Action amitriptyline 25 mg tablet 25 mg PO QHS Qty: 90 3RF divalproex [Depakote] 500 mg tablet,delayed release (DR/EC) 1,000 mg PO HS Qty: 90 3RF
[2024-07-02 10:02] VITALS: BP 137/87; PULSE 88; RESP 16; O2SAT 96
[2024-07-02] MEDS: OLANZapine ODT 5 MG TAB PO (14:37)
--- NOTE | 2024-07-02 15:25 | CMSP_ITS ---
Date of service: 07/02/24 Time of Service: 15:25 Care Management Safety Plan Status Status: Voluntary Reason for Wait Reason for Wait: Inpatient Admission Safety Plan Safety Plan: VOLUNTARY FOR INPATIENT PSYCHIATRIC STABILIZATION.? Patient is appropriate in all interactions since arriving at [facility]; Pt has demonstrated appropriate coping and communication skills, has articulated his or her needs and concerns and is fully engaged during staff interactions. Safety plan has been established with patient, and care team, to adhere to patient goals, identify restrictions based on behavioral status, address nutrition, and determine allowed personal belongings, tools for hygiene and personal care. Determine level of activity including ambulation, level of superv ision, visitors, and determine privileges based on behaviors and level of engagement by pt. VOLUNTARY SAFETY PLAN: 1. Will remain on suicide precautions, in paper clothes 2. Will remain in Zone B under direct supervision of one-on-one staff at all times provided by [employer]; CATA, HAND EDGER stretching press operator. 3. May have paper cups, plates, finger foods as well as a cardboard spoon with which to eat meals. 4. Follow [facility] Management of the Admitted Behavioral Health Patient policy. 5. Shower available in Zone B without restriction. 6. Personal belongings-soft items permitted at RN discretion. 7. Visitors-none at this time. 8. Activities: soft cart items approved per RN discretion. TV permitted; staff to hold remote and provide suggestions for content to reduce/prevent agitation. 9.? Bathroom available in Zone B without restriction. 10. Phone: limited to [facility] cordless phone at RN discretion. Due to VOLUNTARY status, if patient wishes to leave [facility], staff will contact [facility] Crisis Screener ([phone]) and Drinking Water Technician ([phone]) as soon as possible. In the event of elopement, notify [facility] Police ([phone]). Patient is currently voluntarily at [facility] and seeking inpatient admission when a bed becomes available. [facility] Frontline Quality Control Representative will continue seeking placement. Please contact the Drinking Water Technician ([phone]) and [facility] Quality Control Representative ([phone]) for any needed changes in the Safety Plan. Safety plan has been provided to interdepartmental care team.
--- NOTE | 2024-07-02 15:25 | PDOC.CMSAFE ---
Date of service: 07/02/24 Time of Service: 15:25 Care Management Safety Plan Status Status: Voluntary Reason for Wait Reason for Wait: Inpatient Admission Safety Plan Safety Plan: VOLUNTARY FOR INPATIENT PSYCHIATRIC STABILIZATION.? Patient is appropriate in all interactions since arriving at [facility]; Pt has demonstrated appropriate coping and communication skills, has articulated his or her needs and concerns and is fully engaged during staff interactions. Safety plan has been established with patient, and care team, to adhere to patient goals, identify restrictions based on behavioral status, address nutrition, and determine allowed personal belongings, tools for hygiene and personal care. Determine level of activity including ambulation, level of supervision, visitors, and determine privileges based on behaviors and level of engagement by pt. VOLUNTARY SAFETY PLAN: 1. Will remain on suicide precautions, in paper clothes 2. Will remain in Zone B under direct supervision of one-on-one staff at all times provided by [employer]; CATA, CORN CUTTER OPERATOR document review attorney. 3. May have paper cups, plates, finger foods as well as a cardboard spoon with which to eat meals. 4. Follow [facility] Management of the Admitted Behavioral Health Patient policy. 5. Shower available in Zone B without restriction. 6. Personal belongings-soft items permitted at RN discretion. 7. Visitors-none at this time. 8. Activities: soft cart items approved per RN discretion. TV permitted; staff to hold remote and provide suggestions for content to reduce/prevent agitation. 9.? Bathroom available in Zone B without restriction. 10. Phone: limited to [facility] cordless phone at RN discretion. Due to VOLUNTARY status, if patient wishes to leave [facility], staff will contact [facility] Crisis Screener ([phone]) and Drain Tile Machine Operator ([phone]) as soon as possible. In the event of elopement, notify [facility] Police ([phone]). Patient is currently voluntarily at [facility] and seeking inpatient admission when a bed becomes available. [facility] Frontline Casing Operator will continue seeking placement. Please contact the Drain Tile Machine Operator ([phone]) and [facility] Casing Operator ([phone]) for any needed changes in the Safety Plan. Safety plan has been provided to interdepartmental care team.
--- NOTE | 2024-07-02 15:28 | PDOC.CMPRO ---
Date of service: 07/02/24 Time of Service: 15:28 Care Management Progress Note Progress Note Text Progress Note Text: CM huddled with staff regarding Hair's plan of care. Per RN, he has been appropriate and pleasant, with some periods of delusions. He reported that he wanted to leave to his RN, and later when MD presented to evaluate him, he made concerning statements, eluding to delusions he is experiencing. He then stated that he feels he would benefit from inpatient psychiatric care. Per [facility], when he was assessed today, he again stated that he wanted to leave. [facility] was contacted to evaluate him for potential involuntary treatment. Per report, MD requested a psych consult for a one time evaluation. Hair is currently voluntary, seeking inpatient psychiatric stabilization. Referrals have been sent. Safety plan in place; CM will continue to follow. Social Determinants of Health Screening Will the Patient Participate in the Screening?: Unable to obtain
--- NOTE | 2024-07-02 15:58 | PDOC.MHPN2 ---
Date of service: 07/02/24 Time of Service: 13:00 Mental Health Emergency Note Release [facility] release signed:: Yes Reason for Visit Client reported that he was having homicidal ideation and is seeking inpatient level of care. In the last 2 weeks has the pt presented for ES prior to today?: No Client Information Client is: New Well Housed: Yes Non Suicidal Self Injury Current: No History: yes, He would kill them with his bare hands. Safety Risk/Harm to Self or Others Current Ideation to Harm Self or Others: Yes to others. Intent: yes, has intent to harm others Plan: yes,has a plan. Risk: Does risk to harm exist?: yes. Risk: Moderate Risk Duty to warn indicated: Yes Asssessment/Mental Status Appearance: Poor hygiene Attitude: Cooperative and Friendly Impression Pranav reports he is very agitated due to other people wanting to kill him. Pranav reports that this has been happening for six months and no one is doing anything about it. Pranav also reports that he is having thoughts of wanting to harm others and continued to state I will kill them but did not report his intention or plan, just that he was a fighting machine himself while disclosing how he trains himself. Pranav reported he is very agitated and just wants to get to the hospital as that is why he walked to the . Pranav reports he would like to connect in the morning to complete the assessment rather than currently. Resources Reosurces reviewed and given:: [facility] Plan/Disposition Recommended Disposition: Hospitalization facilities contacted. Plan: Client is currently in Zone B waiting for placement. Person reported agreement to plan: Yes Reports/communication Outcome discussed with: ED/Personnel
--- NOTE | 2024-07-02 17:05 | ED.PROG_ITS ---
Date of service: 07/02/24 Time of Service: 17:05 Medical Decision Making I received signout on this 64-year-old male in the emergency department voluntarily in setting of paranoid delusions. Patient had had homicidal ideations. I spoke with Katherine from [facility]. She reported that the patient was no longer having homicidal ideations. I ordered a psych consult. 10:50 PM Telepsych consultation has not yet occurred. No active behavioral issues. I signed patient out to Dr. Rodrigez. Quality:[facility] Health Related Social Needs: No Data to Display Discharge Plan Discharge Details Chief Complaint: PsychEval Clinical Impression: Homicidal ideation Primary Care Provider: Roman Bryan ED Provider: Corey Quarles [place] Meds and New Rx's Prescriptions: No Action amitriptyline 25 mg tablet 25 mg PO QHS Qty: 90 3RF divalproex [Depakote] 500 mg tablet,delayed release (DR/EC) 1,000 mg PO HS Qty: 90 3RF
[2024-07-03] VITALS (22 sets, daily range): BP systolic 100–166; BP diastolic 58–149; PULSE 53–96; RESP 13–24; TEMP 36.6–36.7; O2SAT 96–100
--- NOTE | 2024-07-03 06:51 | W.EDPROG ---
Date of service: 07/02/24 Time of Service: 23:30 Medical Decision Making This patient was signed out to me. Please see previous notes for HPI and initial eval. In brief, 64yo M presented with HI. Medically cleared, signed out pending telepscyh eval. Telepsych plans to call around 0700. On my assessment 0630 patient agitated but verbally redirectable. Per nursing, stated he was going to blow up the hospital. Pt denies this to me. I offered him PO zyprexa which he declined. Does not currently meet criteria for restraint however is escalating; will need to watch closely this morning. Will be signed out to oncoming physician, plan remains as above. Quality:SDOH Health Related Social Needs: No Data to Display Discharge Plan Discharge Details Chief Complaint: PsychEval Clinical Impression: Homicidal ideation Primary Care Provider: Roman Bryan ED Provider: Jannet Rodrigez Home Meds and New Rx's Prescriptions: No Action amitriptyline 25 mg tablet 25 mg PO QHS Qty: 90 3RF divalproex [Depakote] 500 mg tablet,delayed release (DR/EC) 1,000 mg PO HS Qty: 90 3RF
--- NOTE | 2024-07-03 08:46 | NUR.NOTE ---
Nursing Note: pt pacing unit talking about suing the hospital, killing the president, talking about how he is the smarted person in the world that he is going to be president in 3 years he has to learn another language so he can speak to people, and everyone here in this hospital need to go back to school because they are fucking stupid patient not directable at this time, decline morning medication, ate 100% of meal was given 2 coffee outside of meal.
--- NOTE | 2024-07-03 08:53 | NUR.NOTE ---
Nursing Note: patient yelled through window in to nursing station that he is going to blow this [facility] up and turn it in to rubble and if you don't believe me try me
--- NOTE | 2024-07-03 09:16 | NUR.NOTE ---
Nursing Note: PT stated you have 40 mins to discharge me and if no then I am going to destroy this place
--- NOTE | 2024-07-03 09:42 | NUR.NOTE ---
Nursing Note: pt slamming door to bed room yelling from room. This RN offered morning medications multiple times patient refused
--- NOTE | 2024-07-03 09:46 | NUR.NOTE ---
Nursing Note: pt slammed door to his room multiple times while screaming out
--- NOTE | 2024-07-03 09:48 | PDOC.CMSAFE ---
Date of service: 07/03/24 Time of Service: 09:49 Care Management Safety Plan Status Status: Voluntary Reason for Wait Reason for Wait: Inpatient Admission Safety Plan Safety Plan: VOLUNTARY FOR INPATIENT PSYCHIATRIC STABILIZATION.? Patient is appropriate in all interactions since arriving at [facility]; Pt has demonstrated appropriate coping and communication skills, has articulated his or her needs and concerns and is fully engaged during staff interactions. Safety plan has been established with patient, and care team, to adhere to patient goals, identify restrictions based on behavioral status, address nutrition, and determine allowed personal belongings, tools for hygiene and personal care. Determine level of activity including ambulation, level of supervision, visitors, and determine privileges based on behaviors and level of engagement by pt. VOLUNTARY SAFETY PLAN: 1. Will remain on suicide precautions, in paper clothes 2. Will remain in Zone B under direct supervision of one-on-one staff at all times provided by [employer]; [employer], [employer] organ fixer. 3. May have paper cups, plates, finger foods as well as a cardboard spoon with which to eat meals. 4. Follow [facility] Management of the Admitted Behavioral Health Patient policy. 5. Shower available in Zone B without restriction. 6. Personal belongings-soft items permitted at RN discretion. 7. Visitors-none at this time. 8. Activities: soft cart items approved per RN discretion. TV permitted; staff to hold remote and provide suggestions for content to reduce/prevent agitation. 9.? Bathroom available in Zone B without restriction. 10. Phone: limited to [facility] cordless phone at RN discretion. Due to VOLUNTARY status, if patient wishes to leave [facility], staff will contact [facility] Crisis Screener ([phone]) and Alarm Mechanism Adjuster ([phone]) as soon as possible. In the event of elopement, notify [facility] Police ([phone]). Patient is currently voluntarily at [facility] and seeking inpatient admission when a bed becomes available. [facility] [employer] will continue seeking placement. Please contact the Alarm Mechanism Adjuster ([phone]) and [facility] [employer] Industrial Arts Teacher ([phone]) for any needed changes in the Safety Plan. Safety plan has been provided to interdepartmental care team.
[2024-07-03] MEDS: OLANZapine 10 MG TAB 20 MG PO (10:33)
[2024-07-03] MEDS: Docusate Sodium 100 MG CAP PO (10:34)
[2024-07-03] MEDS: LORazepam 1 MG TAB (10:34)
--- NOTE | 2024-07-03 14:02 | NUR.NOTE ---
Nursing Note: after PRNs given per provider orders patient played cards with another patient, ate lunch and also gave an unprompted an apology for his earlier behavior
--- NOTE | 2024-07-03 15:33 | ED.PROG_ITS ---
Date of service: 07/03/24 Time of Service: 15:33 Medical Decision Making Patient signed out to me pending mental health evaluation. Patient demonstrates continued thoughts of psychosis, stating there is a microchip in my asshole and they are all out to get me, I think they want to murder me! Patient was i nitially calm and cooperative, but as the day went on he became notably confrontational and began screaming and yelling at nursing staff, stating that the world was trying to come after him. We then offered the patient oral Zyprexa which she took voluntarily. He has been seen by telehealth, Dr. Ware, who does recommend 5 mg of Zyprexa nightly, as well as admission to a psychiatric facility. Patient will be signed out to my colleague for placement. Quality:[facility] Health Related Social Needs: No Data to Display Discharge Plan Discharge Details Chief Complaint: PsychEval Clinical Impression: Homicidal ideation, Psychosis Primary Care Provider: Roman Bryan ED Provider: Bharathi Hernandez Home Meds and New Rx's Prescriptions: No Action amitriptyline 25 mg tablet 25 mg PO QHS Qty: 90 3RF divalproex [Depakote] 500 mg tablet,delayed release (DR/EC) 1,000 mg PO HS Qty: 90 3RF
--- NOTE | 2024-07-03 16:47 | CMPROGNOTE_ITS ---
Date of service: 07/03/24 Time of Service: 16:47 Care Management Progress Note Progress Note Text Progress Note Text: CM huddled with staff regarding Hair's plan of care. During the huddle, Hair was playing cards with another patient in zone B. Per RN, Hair has been agitated this morning, pacing back and forth and making vague threats against staff and the facility. He eventually agreed to take oral medications, and settled down. There has been a psych consult placed, which was being coordinated by staff. Per [facility], he is being considered at facilities, but there is no bed offer today. Hair remains voluntary at this time, seeking inpatient psychiatric treatment. Referrals are sent. Safety plan in place; CM will continue to follow. Social Determinants of Health Screening Will the Patient Participate in the Screening?: Unable to obtain
--- NOTE | 2024-07-03 17:17 | W.EDPROG ---
Date of service: 07/03/24 Time of Service: 17:17 Medical Decision Making I received signout on this 64-year-old patient again.Patient seen by telepsych. They recommend daily Zyprexa 5 mg. Pending placement, currently here voluntary, but needs to be transition to involuntary if he chooses to leave.He became escalated this morning and became more calm once he took 20 mg of olanzapine and 2 mg of lorazepam. He has not been scoring on the CIWA scale. 9:53 PM Nursing was concerned that patient had had mental status changes. He is being brought back to the medical portion of the ED. I have ordered a comprehensive metabolic panel and a CBC and a chest x-ray. His rapid influenza COVID swab was negative. I have ordered a viral PCR. Patient was moved just ahead of overnight shift. I updated Dr. Rodrigez and signed patient out to her. She will reassess the patient. Quality:[facility] Health Related Social Needs: No Data to Display Discharge Plan Discharge Details Chief Complaint: PsychEval Clinical Impression: Homicidal ideation, Psychosis Primary Care Provider: Roman Bryan ED Provider: Corey Quarles Home Meds and New Rx's Prescriptions: No Action amitriptyline 25 mg tablet 25 mg PO QHS Qty: 90 3RF divalproex [Depakote] 500 mg tablet,delayed release (/EC) 1,000 mg PO HS Qty: 90 3RF
--- NOTE | 2024-07-03 21:45 | DI.RAD_ITS ---
Exam(s) XR PORTABLE CHEST AP EXAM: XR PORTABLE CHEST AP CLINICAL HISTORY: sob TECHNIQUE: 2D digital imaging was performed of the chest. One image was obtained. An AP view was ob tained. COMPARISON: CR XR PORTABLE CHEST AP from 07/06/2018 FINDINGS: MEDIASTINUM: Normal. HEART: Normal. PULMONARY VASCULATURE: Normal. LUNGS: There is atelectasis seen in the left lung base. No focal consolidating infiltrates are seen. PLEURAL SPACE: No pleural effusion or pneumothorax. BONE:Within normal limits for the patient's age. OTHER FINDINGS:Normal. IMPRESSION: No focal consolidating infiltrates. DATA REPOSITORY: RADIATION DOSE DELIVERED:
[2024-07-03 22:08] LABS: Abs Immature Grans 0.03 10^3/uL (0.0-0.06); Absolute Basophil Count 0.03 10^3/uL (0.0-0.2); Absolute Eosinophil Count 0.29 10^3/uL (0.0-0.7); Absolute Monocyte Count 0.69 10^3/uL (0.1-0.8); Absolute Neutrophil Count 2.99 10^3/uL (1.2-6.7); Basophils % 0.5 %; Eosinophils % 4.4 %; HCT 37.3 % (40.0-50.0); Immature Grans % 0.5 %; Lymphocytes % 39.2 %; MCH 28.8 pg (27.0-33.0); MCHC 32.2 % (32.0-36.0); MCV 89 fL (80-95); MPV 9.5 fL (8.0-11.0); Monocytes % 10.4 %; Platelet Count 265 10^3/uL (130-400); RBC 4.17 10^6/uL (4.36-5.78); RDW 14.4 % (11.8-14.1); RDW-SD 47.4 fL; WBC 6.63 10^3/uL (4.4-10.8)
--- NOTE | 2024-07-03 22:09 | NUR.NOTE ---
Nursing Note: Pt moved to room 9 from zone b. RN in zone b reassessed patient and he was lethargic and not aware to the situation. Pt aware to place and time and self. Placed in room 9. IV inserted and labs redone. CXR ordered and PCR covid sent.
--- NOTE | 2024-07-03 22:15 | RT.EKG_ITS ---
APPROVED REPORT Exam: Resting ECG Reason for Exam: QT prolonging meds Patient Location: E HR:62 bpm ECG Measurements Heart Rate 62 AXIS NJ 158 P 59 QRSd 95 QRS -12 QT 401 T 50 QTc 407 Conclusion Sinus rhythm...normal P axis, V-rate 60- [address] segment or T wave abnormalities to suggest occlusive [place]
--- NOTE | 2024-07-03 22:18 | W.EDPROG ---
Date of service: 07/03/24 Time of Service: 22:19 Medical Decision Making This patient was signed out to me. Please see previous notes for H&P and initial eval. In brief, 64yo M with known psych history presents with HI/paranoia. Medically cleared, voluntary, pending placement. Escalating behavior this morning for which he received large doses of zyprexa. Just before signout nursing reported concerns for abnormal behavior; patient seemed to feel generally unwell, not fully oriented, adventitious lung sounds. Moved from to main department for further medical evaluation. On my assessment he is non-toxic appearing wtih normal vital signs. Does have some scattered rhonchi and c/o nasal congestion and cough which is new today. No difficultly breathing or chest pain. Seems somewhat sedated but is oriented to person, place, time, and situation with a non-focal neurologic exam. Suspect most likely side effects from zyprexa +/- emerging respiratory viral illness given nasal congestion and cough (high community prevelance at this time). Will get repeat bloodwork, EKG, and CXR. As he did have a fall prior to arrival and there are some concerns about his current mental status (though my exam is reassurng) out of abundance of caution will also get non-con head CT. EKG SR, appropriate intervals. CXR independently reviewed, no focal pneumonia on my view, radiology read below. CIWA 1. Repeat CBC &, CMP reassuring with no significant changes, UA not infected Head CT independently reviewed, no ICH on my view, radiology read below. Respiratory viral swab negative. Patient noted to be tachycardiac on monitor, rate 150's-160's, appears to be SVT. Spontaneously converted to sinus after ~3 minutes, regrettably EKG not able to be obtained until after event. EKG NSR, appropriate intervals, no ST segment or T wave abnormalities to suggest occlusive [place]. Will remain in the main ED on telemetry monitoring overnight. Planned EMR downtime anticpated; any further events will be documented in paper record. Imaging Data Radiologic Study: Radiologist's impression: CXR: IMPRESSION: Bilateral lower lobe subsegmental atelectatic changes CT: IMPRESSION: 1. Normal unenhanced CT scan of the brain. 2. Chronic maxillary and ethmoid sinusitis Quality:[facility] Health Related Social Needs: No Data to Display Discharge Plan Discharge Details Chief Complaint: PsychEval Clinical Impression: Homicidal ideation, Psychosis Primary Care Provider: Roman Bryan ED Provider: Jannet Rodrigez Home Meds and New Rx's Prescriptions: No Action amitriptyline 25 mg tablet 25 mg PO QHS Qty: 90 3RF divalproex [Depakote] 500 mg tablet,delayed release (DR/EC) 1,000 mg PO HS Qty: 90 3RF
[2024-07-03 22:19] LABS: Prothrombin Time 9.9 sec (9.1-11.1)
[2024-07-03 22:20] LABS: Bilirubin Negative (Negative); Blood Negative (Negative); Clarity Clear (Clear); Glucose Negative (Negative); Ketones Negative (Negative); Leukocyte Esterase Negative (Negative); Nitrite Negative (Negative); Specific Gravity 1.015 (1.005-1.025); Urobilinogen 0.2 mg/dL (Up to 0.2)
[2024-07-03] MEDS: Normal Saline 500 ML IV (22:20)
[2024-07-03 22:23] LABS: ALT 18 U/L (16-63); AST 13 U/L (15-37); Albumin 2.4 g/dL (3.4-5.0); Alkaline Phosphatase 95 U/L (46-116); Anion Gap 6.6 mmol/L (3-11); BUN 23 mg/dL (7-18); Bilirubin, Total 0.18 mg/dL (0.2-1.0); CO2 25.4 mmol/L (21.0-32.0); CREATININE 1.3 mg/dL (0.70-1.30); Calcium 8.8 mg/dL (8.5-10.1); Chloride 108 mmol/L (98-107); Estimated GFR 61.35 (mL/min/1.73m2); Glucose 116 mg/dL (74-106); Potassium 4.4 mmol/L (3.5-5.1); Sodium 140 mmol/L (136-145); Total Protein 6.1 g/dL (6.4-8.2)
--- NOTE | 2024-07-03 22:30 | DI.CT_ITS ---
Exam(s) CT HEAD WO EXAM: CT HEAD WO CLINICAL HISTORY: fall 3 days ago, increasin confused. nonfocal exam. TECHNIQUE: Imaging Protocol: Axial computed tomography images with coronal and sagittal reformatted images were created and reviewed COMPARISON: CT HEAD AND NECK WO CONTRAST from 02/21/2017 FINDINGS: Ventricles and Extra axial spaces: Normal in size and morphology for the patient's age. Hemorrhage: None. Cerebral parenchyma: Normal. Midline shift: None. Brainstem/Cerebellum: Normal. Calvarium: Normal. Visualized Paranasal sinuses/Mastoids: There is near complete opacification of the maxillary sinuses. There is mucosal thickening in the ethmoid air cells. The remaining visualized paranasal sinuses a nd mastoid air cells are clear. Soft Tissues: Unremarkable. IMPRESSION: 1. No acute intracranial process. 2. Maxillary and ethmoid air cell sinusitis. RADIATION DOSE DELIVERED: 922.7mGy.cm Total DLP DATA REPOSITORY: All CT scans at this facility are submitted to the National Radiology Data Registry (NRDR) Dose Index Registry (DIR) with the [employer] (ACR). RADIATION OPTIMIZATION: All CT scans at this facility use at least one of these dose optimization te chniques: automated exposure control; mA and/or kV adjustment per patient size (includes targeted exa ms where dose is matched to clinical indication); or iterative reconstruction.
--- NOTE | 2024-07-03 22:37 | DI.VRAD_ITS ---
PROCEDURE INFORMATION: Exam: XR Chest Exam date and time: 07/03/2024 10:17 PM Age: 64 years old Clinical indication: Shortness of breath; SOB TECHNIQUE: Imaging protocol: Radiologic exam of the chest. Views: 1 view. COMPARISON: CT CHEST LUNG CANCER SCREEN 06/16/2022 1:29 PM FINDINGS: Lungs: Bilateral lower lobe subsegmental atelectatic changes are identified. Pleural spaces: Unremarkable. No pleural effusion. No pneumothorax. Heart/Mediastinum: Unremarkable. No cardiomegaly. Bones/joints: Unremarkable. IMPRESSION: Bilateral lower lobe subsegmental atelectatic changes Dictated and Authenticated by: José Medina MD. Orderin Robina Nicole MD
[2024-07-03 22:45] LABS: COVID-19 PCR Negative (Negative); Influenza A PCR Negative (Negative); Influenza B PCR Negative (Negative); RSV PCR Negative (Negative)
[2024-07-03 22:47] LABS: Source Nasopharynx
--- NOTE | 2024-07-03 23:12 | DI.VRAD_ITS ---
PROCEDURE INFORMATION: Exam: CT Head Without Contrast Exam date and time: 07/03/2024 10:49 PM Age: 64 years old Clinical indication: Other: Fall 3 days ago, increasin confused. Nonfocal exam TECHNIQUE: Imaging protocol: Computed tomography of the head without contrast. COMPARISON: MR BRAIN WO 09/16/2021 12:45 PM FINDINGS: Brain: Normal. No hemorrhage. Unremarkable white matter. No mass effect. Cerebral ventricles: No ventriculomegaly. Paranasal sinuses: Chronic maxillary and ethmoid sinusitis. Mastoid air cells: Visualized mastoid air cells are well aerated. Bones: Unremarkable. No acute fracture. Soft tissues: Unremarkable. IMPRESSION: 1. Normal unenhanced CT scan of the brain. 2. Chronic maxillary and ethmoid sinusitis. Dictated and Authenticated by: José Medina MD. Orderin Elia Power MD
[2024-07-04] VITALS (59 sets, daily range): BP systolic 89–163; BP diastolic 51–113; PULSE 58–155; RESP 14–27; TEMP 35.9; O2SAT 95–100
--- NOTE | 2024-07-04 | RT.EKG_ITS ---
APPROVED REPORT Exam: Resting ECG Reason for Exam: tachy Patient Location: E HR:62 bpm ECG Measurements Heart Rate 62 AXIS RI 155 P 57 QRSd 90 QRS -20 QT 346 T 58 QTc 350 Conclusion Sinus rhythm...normal P axis, V-rate 60- 99 Consider anterior infarct...Q >30mS in V2-V5 appropriate intervals no ST segment or T wave abnormalities to suggest occlusive [place]
[2024-07-04] MEDS: Acetaminophen 325 MG TAB 650 MG PO (01:52)
[2024-07-04] MEDS: Ibuprofen 400 MG TAB PO (01:52)
[2024-07-04] MEDS: LORazepam 1 MG TAB 2 MG PO (01:52)
--- NOTE | 2024-07-04 07:05 | ED.PROG_ITS ---
Date of service: 07/04/24 Time of Service: 07:05 Medical Decision Making Care assumed from outgoing provider. Patient is a 64-year-old gentleman currently under an involuntary hold for threatening and homicidal ideations, paranoid delusions. Initial EE has been filed, pending second CERT. Prior to the second certification taking place, the patient decided that he would like to be voluntary. And therefore the second certification was not pursued. The patient was placed at [facility]. And transported there this afternoon without any complication. Quality:[facility] Health Related Social Needs: No Data to Display Discharge Plan Disposition Patient Disposition: Psychiatric Hospital/Unit Specific Psychiatric Facility: [facility] Condition: Fair Discharge Details Clinical Impression: Homicidal ideation, Psychosis Primary Care Provider: Roman Bryan ED Provider: Garo Martinez Home Meds and New Rx's Prescriptions: No Action amitriptyline 25 mg tablet 25 mg PO QHS Qty: 90 3RF divalproex [Depakote] 500 mg tablet,delayed release (DR/EC) 1,000 mg PO HS Qty: 90 3RF Discharge Data Discharge Date/Time-TO BE ENTERED AT DEPARTURE: 07/04/24 15:00
[2024-07-04] MEDS: OLANZapine 5 MG TAB PO (07:53)
--- NOTE | 2024-07-04 17:43 | PDOC.MHPN2 ---
Date of service: 07/04/24 Time of Service: 17:43 Mental Health Emergency Note Release [facility] release signed:: Yes Reason for Visit The client is known to [facility] however, has not been engaging in treatment so was closed out of services. Intake was completed. The client was screened today via telehealth. He has a history of hospitalizations however, where are unknown. He does mention [facility] often, so it is likely he has been there before. In the last 2 weeks has the pt presented for ES prior to today?: Unknown Impression The client is a 64 year old, single male who lives in [facility]. He has other people who are staying at his apartment as he was trying to help them out however, they now have squatters rights and refuse to leave. He reports being employed but does not share where. The client presents sitting at his desk coloring and listening to the TV. He was asked if anything happened last night (as there was a partial MH EE written on him) and he noted that he had not gotten his medications and was a bit argumentative and then decided to take his meds. He did not appear to have any idea that an EE was started. The EE was not finished as [facility] was not alerted to this encounter and he did not meet criteria this am while being assessed. He agrees that he would like some treatment to get his medications straightened out and also recognizes he has some court things that need taken care of following. The client denied SI and HI at this time. he reported he slept well and is eating really well. He did appear a bit tired today as evidenced by fluttering eyelids, slow soft speech and slowed thoughts. Otherwise the client is hopeful and positive. Plan/Disposition Recommended Disposition: Hospitalization facilities contacted. Plan: The client was accepted by [facility] today. The prior auth was started by and [facility] was updated. Client transported to [facility] this afternoon. Person reported agreement to plan: Yes Reports/communication Outcome discussed with: ED/Personnel
--- NOTE | 2024-07-04 18:27 | CMPROGNOTE_ITS ---
Date of service: 07/04/24 Time of Service: 18:27 Care Management Progress Note Progress Note Text Progress Note Text: Hair was accepted at [facility] for inpatient psychiatric care. Transport was set up with [facility] by ED staff. [facility] called 15 minutes prior to Hair leaving, asking for a PA prior to him leaving. CM contacted [facility], who stated that they are working on the PA currently. CM contacted [facility] and spoke to their UR department, who agreed to have Hair leave while the PA is pending. Hair transported to [facility] as scheduled. CM will continue to follow. Social Determinants of Health Screening Will the Patient Participate in the Screening?: Unable to obtain
== END 2024-07-04 15:00 ==
PROVIDERS: Emergency Medicine; Student in an Organized Health Care Education/Training Program; Emergency Provider Emergency Medicine; PCP Family Medicine
DX: R45.850 Homicidal ideations (principal); F29 Unspecified psychosis not due to a substance or known physiological condition; F17.210 Nicotine dependence, cigarettes, uncomplicated
CPT/HCPCS: 00123; 36415; 36416; 80053; 80307; 82962; 87637; 93005; 96360; 96361; 99285; 70450; 71045; 80320; 81003; 83735; 85025; 85610; 93010

== ENCOUNTER 2024-07-10 19:06 | Emergency (ER) | payer MEDICARE, MEDICAID, SELFPAY ==
[2024-07-10 19:05] VITALS: BP 136/82; PULSE 65; RESP 16; TEMP 36.4; O2SAT 95
--- NOTE | 2024-07-10 19:06 | PDOC.MHCN ---
Date of service: 07/10/24 Time of Service: 18:37 Mental Health Emergency Note Release [facility] release signed:: Yes Reason for Visit Pranav is presenting to [facility] to seek voluntary inpatient treatment after being seen by Mobile Crisis at the [facility] [employer] Department In the last 2 weeks has the pt presented for ES prior to today?: Yes, presented at [facility] ED Client Information Client is: Adult Outpatient Well Housed: Yes Non Suicidal Self Injury Current: No History: No Safety Risk/Harm to Self or Others Current Ideation to Harm Self or Others: No Risk: Does risk to harm exist?: No Risk: N/A Duty to warn indicated: No Asssessment/Mental Status Appearance: Disheveled Attitude: Cooperative Behavior: Poor impulse control and Gait disturbances Speech: Normal Affect: Cogruent with mood Mood: Stressed and Anxious Thought process: Flight of ideas, Circumstational and Tangential Delusions: yes, Persectory/Paranoid Attention: Unremarkable Perception: Not impaired Orientation: Fully orientated Memory: Intact Insight: Poor Judgement: Poor Neurovegetative Symptoms Sleep: Decrease Appetitie: No change Interests: No change Energy: No change Libido: Not applicable Substance Use: Do you use nicotine?: No Have you used substances in the last 7 days?: yes, Pranav reports he drank alcohol today but no other substances Additional Issues: Assaultive/Threatening Behavior: No Medical Concerns: No Client engaged in active self harm w/weapon: No Threatening to run away: No Child reported abuse/neglect: No Voluntarily presenting for services: Yes Domestic violence is a concern: No Extreme Psychosis or extreme behavior is present: Yes Impression Pranav presents to this real estate underwriter laying on the bench with his feet on the wall. Pranav is in street clothes, disheveled, and tangential. Pranav can be heard yelling by this real estate underwriter and SANGEETA Grubbs prior to entering the holding room he is in. Pranav reports to this real estate underwriter and SANGEETA Grubbs that people are truing to kill him. Pranav goes on about how he has read law books and that it is illegal, although this real estate underwriter was unable to determine what he was talking about. Pranav then reported that eh has not been able to sleep in the past 100+ hours. Pranav reports he wants to go to the hospital for medication and for help. Pranav reports that he is one of the most important people in the world and he will be president one day. Pranav then states he is the most intelligent person in the world and everyone knows that which is why random people choose to give him money when they see him. Pranav reports that he is so pissed off currently that I could blow this whole town [employer] Romie asked how and he stated, Its easy and I can get whatever I need then stated he would not kill innocent children. Pranav reports he makes himself nervous because he knows what he can do. Pranav became tearful and reported that he had to spend $2,000 to fix a door and window he busted. This real estate underwriter attempted to complete screening tools but Pranav was not able to answer them. Pranav reports he has consumed alcohol today but has not used any other substances. Pranav denies HI/SI/NSSI when asked directly but has made passive HI statements to this real estate underwriter during this assessment as well as to the [facility] Police Officers prior to this assessment. Pranav reports he wants to go to the hospital to wait for treatment and that he is wiling to stay. Pranav reported one concern of which his oven is on and he needs it turned off. At this time, Pranav is presenting with poor insight and judgment, poor impulse control evident by him leaving his oven on. Pranav is also displaying with a tangential, circumstantial, and flight of ideas thought process. Pranav is in need of med evaluation, and inpatient treatment to provide him time to become stable and cooperative with both inpatient and outpatient treatment. Plan/Disposition Recommended Disposition: Hospitalization (Referrals were sent on 07/10) facilities contacted. Plan: Pranav will remain at [facility] until voluntary treatment is secured. Person reported agreement to plan: Yes Reports/communication Outcome discussed with: ED/Personnel
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
[2024-07-10 20:40] LABS: Abs Immature Grans 0.02 10^3/uL (0.0-0.06); Absolute Basophil Count 0.07 10^3/uL (0.0-0.2); Absolute Eosinophil Count 0.19 10^3/uL (0.0-0.7); Absolute Lymphocyte Count 2.56 10^3/uL (1.2-3.4); Absolute Monocyte Count 0.78 10^3/uL (0.1-0.8); Absolute Neutrophil Count 5.01 10^3/uL (1.2-6.7); Basophils % 0.8 %; Eosinophils % 2.2 %; HCT 35.9 % (40.0-50.0); HGB 11.7 g/dL (13.5-17.5); Immature Grans % 0.2 %; Lymphocytes % 29.7 %; MCH 28.7 pg (27.0-33.0); MCHC 32.6 % (32.0-36.0); MCV 88 fL (80-95); MPV 9.1 fL (8.0-11.0); Neutrophils % 58.1 %; Platelet Count 308 10^3/uL (130-400); RBC 4.07 10^6/uL (4.36-5.78); RDW 14.6 % (11.8-14.1); RDW-SD 47.4 fL; WBC 8.63 10^3/uL (4.4-10.8)
[2024-07-10 20:51] LABS: ALT 34 U/L (16-63); AST 32 U/L (15-37); Albumin 3.1 g/dL (3.4-5.0); Alkaline Phosphatase 107 U/L (46-116); Anion Gap 10.4 mmol/L (3-11); BUN 17 mg/dL (7-18); Bilirubin, Total 0.35 mg/dL (0.2-1.0); CO2 25.6 mmol/L (21.0-32.0); CREATININE 0.9 mg/dL (0.70-1.30); Calcium 8.9 mg/dL (8.5-10.1); Chloride 104 mmol/L (98-107); ETHANOL BLOOD 43.6 mg/dL (<10); Estimated GFR 95.37 (mL/min/1.73m2); Glucose 80 mg/dL (74-106); Potassium 3.4 mmol/L (3.5-5.1); Sodium 140 mmol/L (136-145)
[2024-07-10 21:03] LABS: Acetaminophen < 2 ug/mL (10-30); Salicylate < 2.8 mg/dL (<2.8)
[2024-07-10 22:02] LABS: *AMPHETAMINES SCREEN URINE Negative (Negative); *BARBITURATES SCREEN URINE Negative (Negative); *BENZODIAZEPINES SCREEN URINE Negative (Negative); Cannabinoids THC Positive (Negative); Cocaine Screen,Urine Negative (Negative); METHADONE URINE SCREEN Negative (Negative); OPIATES URINE SCREEN Negative (Negative)
[2024-07-10 22:03] LABS: Tricyclic Antidepressants Negative (Negative)
[2024-07-10] MEDS: Acetaminophen 325 MG TAB 650 MG PO (23:19)
[2024-07-11] MEDS: diphenhydrAMINE 25 MG CAP 50 MG PO (02:26)
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
[2024-07-11 07:17] VITALS: BP 168/94; PULSE 68; RESP 18; TEMP 35.8; O2SAT 100
--- NOTE | 2024-07-11 09:27 | PDOC.CMSAFE ---
Date of service: 07/11/24 Time of Service: 09:27 Care Management Safety Plan Status Status: Voluntary Reason for Wait Reason for Wait: Inpatient Admission Safety Plan Safety Plan: VOLUNTARY FOR INPATIENT PSYCHIATRIC STABILIZATION.? Patient is appropriate in all interactions since arriving at [facility]; Pt has demonstrated appropriate coping and communication skills, has articulated his or her needs and concerns and is fully engaged during staff interactions. Safety plan has been established with patient, and care team, to adhere to patient goals, identify restrictions based on behavioral status, address nutrition, and determine allowed personal belongings, tools for hygiene and personal care. Determine level of activity including ambulation, level of supervision, visitors, and determine privileges based on behaviors and level of engagement by pt. SAFETY PLAN: 1. Will remain on suicide precautions, in paper clothes 2. Will remain in room under direct supervision of one-on-one staff at all times provided by [employer]; CATA, HUMAN PROJECTILE motor room controller. 3. May have paper cups, plates, finger foods as well as a cardboard spoon with which to eat meals. 4. Follow [facility] Management of the Admitted Behavioral Health Patient policy. 5. Comfort bath system, shower permitted with escort at RN discretion. 6. Personal belongings-soft items permitted at RN discretion. 7. Visitors-none at this time. 8. Activities: soft cart items approved per RN discretion. 9.? Bathroom privileges with escort in the ED. 10. Phone: limited to cordless phone at RN discretion. Due to VOLUNTARY status, if patient wishes to leave [facility], staff will contact [facility] Crisis Screener ([phone]) and On-Call Application Developer Manager ([phone]) as soon as possible. In the event of elopement, notify [facility] Police ([phone]). Patient is currently voluntarily at [facility] and seeking inpatient admission when a bed becomes available. [facility] Frontline Machine Precision Etcher will continue seeking placement. Please contact the Newspaper Writer Application Developer Manager ([phone]) and [facility] Machine Precision Etcher ([phone]) for any needed changes in the Safety Plan. Safety plan has been provided to interdepartmental care team.
--- NOTE | 2024-07-11 13:32 | PDOC.CMDIS ---
Date of service: 07/11/24 Time of Service: 13:32 Care Management Discharge Plan Reason for Hospitalization: depression and suicidal ideations Discharge Plan: Hair was discharged home on a safety plan today after [facility] met with him. He will f/u with his community providers. SDOH Health Related Social Needs: Health related social needs problems with daily activities (Z73.9)
--- NOTE | 2024-07-11 13:49 | ED.PROG_ITS ---
Date of service: 07/11/24 Time of Service: 13:49 Medical Decision Making Patient was seen evaluated by mental health advocates. At this time they did not the patient safe for discharge with safety plan at home. Patient concurs with this. Patient will be discharged. Patient does have outpatient resources in place. We have extensively reviewed the treatment plan and discharge instructions with the patient. I have addressed all patient concerns at this time. The patient was made aware of what symptoms to monitor for that would warrant a return to the emergency department. Discussed the plan with the patient, they demonstrate verbal understanding and agreement with our assessment and plan at this time. The documentation in this chart was dictated using [employer] dictation software. Please excuse any dictation errors. Quality:SDOH Health Related Social Needs: Health related social needs problems with daily activi ties (Z73.9) Discharge Plan Disposition Patient Disposition: Home Condition: Good Discharge Details Chief Complaint: PsychEval Clinical Impression: Alcohol intoxication, Suicidal ideation Primary Care Provider: Roman Bryan ED Provider: Bharathi Hernandez Home Meds and New Rx's Prescriptions: No Action amitriptyline 25 mg tablet 25 mg PO QHS Qty: 90 3RF divalproex [Depakote] 500 mg tablet,delayed release (DR/EC) 1,000 mg PO HS Qty: 90 3RF Discharge Instructions Additional Instructions: Please follow-up closely with your mental health advocates. Please abide by your safety plan. If you notice any worsening of your symptoms, or any new symptoms such as vomiting, diarrhea, fever, chills, shortness of breath, chest pain, numbness, weakness, or fainting , please return immediately to the emergency department for reevaluation. Please follow up with your primary care provider as soon as possible for reassessment and reevaluation. As always, it was a pleasure participating in your medical care today. Referrals: Roman Bryan DO [Primary Care Provider] -
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
== END 2024-07-11 14:43 | disposition home or self-care (01) ==
PROVIDERS: Emergency Medicine Emergency Medical Services; Emergency Provider Student in an Organized Health Care Education/Training Program; PCP Family Medicine
DX: R45.851 Suicidal ideations (principal); F10.120 Alcohol abuse with intoxication, uncomplicated; F32.A Depression, unspecified; F17.210 Nicotine dependence, cigarettes, uncomplicated; Y90.2 Blood alcohol level of 40-59 mg/100 ml
CPT/HCPCS: 00123; 36415; 80053; 80307; 99285; 80320; 80329; 85025; 99284

== ENCOUNTER 2024-07-17 21:25 | Emergency (ER) | payer MEDICARE, MEDICAID, SELFPAY ==
[2024-07-17 21:33] VITALS: BP 118/87; PULSE 90; RESP 16; TEMP 36.4; O2SAT 96
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
== END 2024-07-17 23:15 ==
LOC: ER 22:08
PROVIDERS: Emergency Provider Emergency Medicine; PCP Family Medicine
DX: F10.929 Alcohol use, unspecified with intoxication, unspecified (principal); F14.90 Cocaine use, unspecified, uncomplicated; Z73.9 Problem related to life management difficulty, unspecified
CPT/HCPCS: 99285

== ENCOUNTER 2024-07-23 23:27 | Emergency (ER) | payer MEDICARE, MEDICAID, SELFPAY ==
[2024-07-23 23:25] VITALS: BP 137/93; PULSE 77; RESP 16; TEMP 35.9; O2SAT 98
[2024-07-23] MEDS: Diclofenac 1% Gel 100 GM TUBE TP (23:45)
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
== END 2024-07-24 07:16 | disposition home or self-care (01) ==
PROVIDERS: Emergency Provider Student in an Organized Health Care Education/Training Program; PCP Family Medicine
DX: F10.220 Alcohol dependence with intoxication, uncomplicated (principal); M79.672 Pain in left foot; M79.671 Pain in right foot; G89.29 Other chronic pain; F17.210 Nicotine dependence, cigarettes, uncomplicated
CPT/HCPCS: 99283

== ENCOUNTER 2024-07-28 23:11 | Emergency (ER) | payer MEDICARE, MEDICAID, SELFPAY ==
[2024-07-28 23:11] VITALS: BP 143/88; PULSE 81; RESP 18; TEMP 36.7; O2SAT 94
[2024-07-28 23:14] VITALS: RESP 18
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
[2024-07-28] MEDS: Hydrocortisone 25 MG SUPP PR (23:40)
== END 2024-07-28 23:40 | disposition home or self-care (01) ==
LOC: ER 23:31
PROVIDERS: Emergency Provider Student in an Organized Health Care Education/Training Program; PCP Family Medicine
DX: K60.2 Anal fissure, unspecified (principal); F17.210 Nicotine dependence, cigarettes, uncomplicated; Z59.811 Housing instability, housed, with risk of homelessness
CPT/HCPCS: 99283

== ENCOUNTER 2024-08-07 22:01 | Emergency (ER) | payer MEDICARE, MEDICAID, SELFPAY ==
[2024-08-07 22:08] VITALS: BP 149/95; PULSE 91; RESP 18; TEMP 36.6; O2SAT 97
[2024-08-07 22:10] VITALS: RESP 18
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
== END 2024-08-07 22:21 ==
PROVIDERS: Emergency Provider Emergency Medicine; PCP Family Medicine
DX: F10.120 Alcohol abuse with intoxication, uncomplicated (principal)
CPT/HCPCS: 99282

== ENCOUNTER 2024-08-11 17:13 | Emergency (ER) | payer MEDICARE, MEDICAID, SELFPAY ==
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
[2024-08-11 17:17] VITALS: BP 165/114; PULSE 78; RESP 20; TEMP 37.1; O2SAT 98
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
[2024-08-11] MEDS: Acetaminophen 500 MG TAB 1000 MG PO (17:57)
--- NOTE | 2024-08-11 18:42 | NUR.NOTE ---
bl elbows had abrasions, area was cleaned with soap and water, antibiotic ointment was applied, and wrapped with Luz, pt given supplies to take home. Nursing Note:
== END 2024-08-12 01:58 | disposition home or self-care (01) ==
PROVIDERS: Emergency Provider Emergency Medicine; PCP Family Medicine
DX: S09.8XXA Other specified injuries of head, initial encounter (principal); S16.1XXA Strain of muscle, fascia and tendon at neck level, initial encounter; S30.0XXA Contusion of lower back and pelvis, initial encounter; F17.210 Nicotine dependence, cigarettes, uncomplicated; Y04.8XXA Assault by other bodily force, initial encounter; Y93.89 Activity, other specified
CPT/HCPCS: 99284; 70450; 72125; 72220

== ENCOUNTER 2024-08-12 01:20 | Emergency (ER) | payer MEDICARE, MEDICAID, SELFPAY ==
[2024-08-12 01:19] VITALS: BP 176/112; PULSE 81; RESP 18; TEMP 36.2; O2SAT 97
--- NOTE | 2024-08-12 01:28 | NUR.NOTE ---
PT is belligerent in the ED. PT is yelling profanities at staff. Nursing Note:
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
[2024-08-12 01:37] VITALS: RESP 18
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
== END 2024-08-12 01:58 ==
LOC: ER 02:01
PROVIDERS: Emergency Provider Emergency Medicine; PCP Family Medicine
DX: F10.120 Alcohol abuse with intoxication, uncomplicated (principal); F17.210 Nicotine dependence, cigarettes, uncomplicated
CPT/HCPCS: 99283

== ENCOUNTER 2024-08-19 17:27 | Emergency (ER) | payer MEDICARE, MEDICAID, SELFPAY ==
[2024-08-19 17:24] VITALS: BP 151/86; PULSE 76; RESP 16; TEMP 36.5; O2SAT 98
[2024-08-19 18:05] VITALS: BP 151/86; PULSE 76; RESP 15; RESP 16; TEMP 36.5; O2SAT 98
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
== END 2024-08-19 18:09 | disposition other institution (70) ==
PROVIDERS: Emergency Provider Physician Assistant; PCP Family Medicine
DX: F10.929 Alcohol use, unspecified with intoxication, unspecified (principal); Z59.811 Housing instability, housed, with risk of homelessness
CPT/HCPCS: 99285; 99283

== ENCOUNTER 2024-11-18 20:09 | Emergency (ER) | payer MEDICARE, MEDICAID, SELFPAY ==
[2024-11-18 20:10] VITALS: BP 180/95; PULSE 93; RESP 16; TEMP 35.7; O2SAT 94
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
== END 2024-11-18 20:27 ==
PROVIDERS: Emergency Provider Physician Assistant; PCP Family Medicine
DX: F10.10 Alcohol abuse, uncomplicated (principal); R45.1 Restlessness and agitation; F17.210 Nicotine dependence, cigarettes, uncomplicated
CPT/HCPCS: 99283